=== PATIENT | female | born 1960 | race Caucasian/White ===

== ENCOUNTER 2017-10-29 18:54 | Inpatient (IN) | payer OTHER ==
[2017-10-29] MEDS ORDERED: NACL 0.9% 3 ML SYG IV (21:00)
[2017-10-29] MEDS ORDERED: DEXTROSE 50% 50 ML SYRINGE IV (21:30)
[2017-10-29] MEDS ORDERED: GLUCAGON 1 MG INJ IM (21:30)
[2017-10-29] MEDS ORDERED: GLUCOSE GEL 15 GRAM TUBE PO ×2 (21:30)
[2017-10-29] MEDS ORDERED: GLUCOSE GEL 15 GRAM TUBE BUCCAL (21:30)
[2017-10-29] MEDS: GABAPENTIN 300 MG CAP PO (22:34)
[2017-10-29] MEDS: ATORVASTATIN 80 MG TAB PO (22:34)
[2017-10-29] MEDS: FERROUS SULFATE (EC) 325 MG TAB PO (22:34)
[2017-10-29] MEDS: INSULIN ASPART [NOVOLOG] 3 ML PEN SC (22:40)
[2017-10-29] MEDS: INSULIN GLARGINE [LANtus] 3 ML PEN SC (22:40)
[2017-10-29] MEDS: ACETAMINOPHEN 325 MG TAB PO (22:43)
[2017-10-29] MEDS: METOPROLOL 50 MG TAB PO (22:43)
[2017-10-30] MEDS: ACCU-CHEK XX (02:37)
[2017-10-30] MEDS: DEXTROSE 50% 50 ML SYRINGE IV (03:53)
[2017-10-30] MEDS: PANTOPRAZOLE (EC) 40 MG TAB PO (05:49)
[2017-10-30] MEDS ORDERED: glipiZIDE (XL) 5 MG TAB PO (07:30)
[2017-10-30 07:49] LABS: ADD MAN DIFF? NO
[2017-10-30 07:56] LABS: WHITE BLOOD COUNT 6.9 10^3/ul (4.8-10.8)
[2017-10-30 07:56] LABS: BASOPHIL # 0.1 10^3/ul (0.0-0.1); BASOPHILS % 0.7 % (0.0-2.0); EOSINOPHILS # 0.1 10^3/ul (0.0-0.5); EOSINOPHILS % 0.7 % (0.0-7.0); HEMATOCRIT 27.7 % (37.0-47.0); HEMOGLOBIN 8.6 g/dl (12.0-16.0); LYMPHOCYTES # 1.3 10^3/ul (0.8-2.9); LYMPHOCYTES % 18.3 % (15.0-51.0); MEAN CORPUSCULAR HEMOGLOBIN 27.1 pg (29.0-33.0); MEAN CORPUSCULAR VOLUME 87.4 fl (82.0-101.0); MEAN PLATELET VOLUME 9.4 fl (7.4-10.4); MONOCYTE # 0.3 10^3/ul (0.3-0.9); MONOCYTES % 4.6 % (0.0-11.0); NEUTROPHIL # 5.2 10^3/ul (1.6-7.5); NEUTROPHILS % 75.3 % (39.0-77.0); PLATELET COUNT 544 10^3/UL (140-415); RED BLOOD COUNT 3.17 10^6/ul (4.20-5.40); RED CELL DISTRIBUTION WIDTH 16.6 % (11.5-14.5)
[2017-10-30] MEDS: INSULIN ASPART [NOVOLOG] 3 ML PEN SC ×4 (08:00→21:24)
[2017-10-30 08:19] LABS: ANION GAP 13 (8-16); BLOOD UREA NITROGEN 27 mg/dl (7-20); CALCIUM 8.7 mg/dl (8.4-10.2); CARBON DIOXIDE 25 mmol/L (21-31); CHLORIDE 112 mmol/L (97-110); CREATININE 1.82 mg/dl (0.44-1.00); GLUCOSE 122 mg/dl (70-220); POTASSIUM 4.2 mmol/L (3.5-5.1); SODIUM 146 mmol/L (135-144)
[2017-10-30] MEDS: ASPIRIN 81 MG TAB PO (08:30)
[2017-10-30] MEDS: FELODIPINE (ER) 10 MG TAB PO (08:31)
[2017-10-30] MEDS: METOPROLOL 50 MG TAB PO ×2 (08:31→21:18)
[2017-10-30] MEDS: ISOSORBIDE MONONITRATE(SR)30 MG TAB PO (08:31)
[2017-10-30] MEDS: FENOFIBRATE 145 MG TAB PO (08:32)
[2017-10-30] MEDS: CLOPIDOGREL 75 MG TAB PO (08:32)
[2017-10-30] MEDS: AMLODIPINE 10 MG TAB PO (08:32)
[2017-10-30] MEDS: FERROUS SULFATE (EC) 325 MG TAB PO ×2 (08:49→21:17)
[2017-10-30] MEDS ORDERED: NON-FORMULARY/PATIENT OWN MED (Fenofibrate, Micronized* (Fenofibrate*) 160 MG) PO (11:30)
[2017-10-30] MEDS ORDERED: NITROGLYCERIN (SL) 0.4 MG TAB SL (11:30)
[2017-10-30] MEDS: FUROSEMIDE 20 MG TAB PO (12:30)
[2017-10-30] MEDS: ACETAMINOPHEN 325 MG TAB PO (14:41)
[2017-10-30 19:46] LABS: TROPONIN-I 0.393 ng/ml (0.00-0.12)
[2017-10-30 20:10] LABS: IRON 38 ug/dl (35-150)
[2017-10-30 20:19] LABS: % IRON SATURATION 13 % SAT (22-52); TOTAL IRON BINDING CAPACITY 304 ug/dl (241-421)
[2017-10-30 21:10] LABS: CREATINE KINASE 96 IU/L (23-200)
[2017-10-30] MEDS: GABAPENTIN 300 MG CAP PO (21:17)
[2017-10-30] MEDS: ATORVASTATIN 80 MG TAB PO (21:17)
[2017-10-30 21:20] LABS: B-TYPE NATRIURETIC PEPTIDE 15800 PG/ML (0-125); CK INDEX 1.3; CK-MB 1.22 ng/ml (0.0-2.4)
[2017-10-30 21:25] LABS: TROPONIN-I 0.365 ng/ml (0.00-0.12)
[2017-10-30] MEDS: morphine 2 MG INJ IV (23:05)
[2017-10-31] MEDS: ACCU-CHEK XX (02:26)
[2017-10-31] MEDS: FUROSEMIDE 20 MG TAB PO (05:30)
[2017-10-31] MEDS: PANTOPRAZOLE (EC) 40 MG TAB PO (05:30)
[2017-10-31 06:32] LABS: ADD MAN DIFF? NO
[2017-10-31 07:09] LABS: CK-MB 1.49 ng/ml (0.0-2.4)
[2017-10-31 07:11] LABS: ADD UMIC YES; UR ASCORBIC ACID NEGATIVE (NEGATIVE); UR BILIRUBIN (Dip) NEGATIVE (NEGATIVE); UR BLOOD (Dip) NEGATIVE (NEGATIVE); UR CLARITY CLEAR (CLEAR); UR COLOR YELLOW (YELLOW); UR GLUCOSE (Dip) 3+ mg/dL (NEGATIVE); UR KETONES (Dip) NEGATIVE (NEGATIVE); UR LEUKOCYTE ESTERASE (Dip) NEGATIVE Leu/ul (NEGATIVE); UR NITRITE (Dip) NEGATIVE (NEGATIVE); UR RBC 2 /HPF (0-5); UR SPECIFIC GRAVITY (Dip) 1.013 (1.003-1.030); UR TOTAL PROTEIN (Dip) 3+ mg/dl (NEGATIVE); UR UROBILINOGEN (Dip) NEGATIVE (NEGATIVE); UR WBC 3 /HPF (0-5)
[2017-10-31 07:19] LABS: ANION GAP 15 (8-16); BLOOD UREA NITROGEN 27 mg/dl (7-20); CALCIUM 8.8 mg/dl (8.4-10.2); CARBON DIOXIDE 24 mmol/L (21-31); CHLORIDE 111 mmol/L (97-110); CREATININE 1.69 mg/dl (0.44-1.00); GLUCOSE 176 mg/dl (70-220); POTASSIUM 4.2 mmol/L (3.5-5.1); SODIUM 146 mmol/L (135-144)
[2017-10-31] MEDS: INSULIN ASPART [NOVOLOG] 3 ML PEN SC ×4 (07:29→20:33)
[2017-10-31 08:01] LABS: CHOLESTEROL 137 mg/dl (100-200)
[2017-10-31 08:01] LABS: CHOL/HDL RATIO 3.1 RATIO; CK INDEX 1.8; CREATINE KINASE 82 IU/L (23-200); HDL CHOLESTEROL 44 mg/dl (37-92); LDL CHOLESTEROL,CALCULATED 41 mg/dl; TRIGLYCERIDES 260 mg/dl (0-149)
[2017-10-31 08:10] LABS: WHITE BLOOD COUNT 6.1 10^3/ul (4.8-10.8)
[2017-10-31 08:10] LABS: BASOPHIL # 0.1 10^3/ul (0.0-0.1); BASOPHILS % 0.8 % (0.0-2.0); EOSINOPHILS # 0.2 10^3/ul (0.0-0.5); EOSINOPHILS % 3.8 % (0.0-7.0); HEMATOCRIT 25.4 % (37.0-47.0); HEMOGLOBIN 7.9 g/dl (12.0-16.0); LYMPHOCYTES # 1.8 10^3/ul (0.8-2.9); LYMPHOCYTES % 29.5 % (15.0-51.0); MEAN CORPUSCULAR HEMOGLOBIN 27.2 pg (29.0-33.0); MEAN CORPUSCULAR HGB CONC 31.1 g/dl (32.0-37.0); MEAN CORPUSCULAR VOLUME 87.6 fl (82.0-101.0); MEAN PLATELET VOLUME 9.7 fl (7.4-10.4); MONOCYTE # 0.3 10^3/ul (0.3-0.9); MONOCYTES % 5.4 % (0.0-11.0); NEUTROPHIL # 3.6 10^3/ul (1.6-7.5); PLATELET COUNT 494 10^3/UL (140-415)
[2017-10-31] MEDS: ASPIRIN 81 MG TAB PO (08:12)
[2017-10-31] MEDS: ISOSORBIDE MONONITRATE(SR)30 MG TAB PO (08:12)
[2017-10-31] MEDS: METOPROLOL 50 MG TAB PO ×2 (08:12→20:22)
[2017-10-31] MEDS: FENOFIBRATE 145 MG TAB PO (08:12)
[2017-10-31] MEDS: AMLODIPINE 10 MG TAB PO (08:12)
[2017-10-31] MEDS: FERROUS SULFATE (EC) 325 MG TAB PO ×2 (08:12→20:22)
[2017-10-31] MEDS: CLOPIDOGREL 75 MG TAB PO (08:12)
[2017-10-31] MEDS: FELODIPINE (ER) 10 MG TAB PO (08:12)
[2017-10-31 09:58] LABS: HEMOGLOBIN A1C 9.6 % (0-5.9)
[2017-10-31] MEDS: DOCUSATE SODIUM 100 MG CAP PO (16:33)
[2017-10-31] MEDS: ATORVASTATIN 80 MG TAB PO (20:22)
[2017-10-31] MEDS: GABAPENTIN 300 MG CAP PO (20:22)
[2017-11-01] MEDS: ACCU-CHEK XX (02:45)
[2017-11-01] MEDS: morphine 2 MG INJ IV ×2 (03:00→07:55)
[2017-11-01] MEDS: DOCUSATE SODIUM 100 MG CAP PO (05:11)
[2017-11-01] MEDS: PANTOPRAZOLE (EC) 40 MG TAB PO (05:11)
[2017-11-01] MEDS: INSULIN ASPART [NOVOLOG] 3 ML PEN SC ×4 (07:50→20:55)
[2017-11-01] MEDS: METOPROLOL 50 MG TAB PO ×2 (07:55→20:52)
[2017-11-01] MEDS: AMLODIPINE 10 MG TAB PO (07:55)
[2017-11-01] MEDS: ISOSORBIDE MONONITRATE(SR)30 MG TAB PO (07:56)
[2017-11-01] MEDS: FERROUS SULFATE (EC) 325 MG TAB PO ×2 (07:56→20:52)
[2017-11-01] MEDS: ASPIRIN 81 MG TAB PO (07:56)
[2017-11-01] MEDS: CLOPIDOGREL 75 MG TAB PO (07:56)
[2017-11-01] MEDS: FENOFIBRATE 145 MG TAB PO (07:57)
[2017-11-01] MEDS: GUAIFENESIN/CODEINE 5ML CUP PO (09:40)
[2017-11-01] MEDS: BISACODYL (EC) 5 MG TAB PO (16:08)
[2017-11-01] MEDS: MAGNESIUM CITRATE 300 ML BTL PO (17:07)
[2017-11-01] MEDS: POLYETHYLENE GLYCOL 3350 119 GM POWDER PO (17:08)
[2017-11-01 17:53] LABS: ADD MAN DIFF? NO
[2017-11-01 17:55] LABS: BASOPHIL # 0.1 10^3/ul (0.0-0.1); BASOPHILS % 0.8 % (0.0-2.0); EOSINOPHILS # 0.3 10^3/ul (0.0-0.5); EOSINOPHILS % 4.7 % (0.0-7.0); HEMOGLOBIN 9.2 g/dl (12.0-16.0); LYMPHOCYTES # 1.8 10^3/ul (0.8-2.9); LYMPHOCYTES % 28.3 % (15.0-51.0); MEAN CORPUSCULAR HEMOGLOBIN 27.5 pg (29.0-33.0); MEAN CORPUSCULAR HGB CONC 31.7 g/dl (32.0-37.0); MEAN CORPUSCULAR VOLUME 86.8 fl (82.0-101.0); MEAN PLATELET VOLUME 9.8 fl (7.4-10.4); MONOCYTE # 0.4 10^3/ul (0.3-0.9); MONOCYTES % 6.7 % (0.0-11.0); NEUTROPHIL # 3.7 10^3/ul (1.6-7.5); NEUTROPHILS % 59.2 % (39.0-77.0); PLATELET COUNT 571 10^3/UL (140-415); RED BLOOD COUNT 3.34 10^6/ul (4.20-5.40); RED CELL DISTRIBUTION WIDTH 16.5 % (11.5-14.5)
[2017-11-01 17:55] LABS: WHITE BLOOD COUNT 6.2 10^3/ul (4.8-10.8)
[2017-11-01] MEDS: ATORVASTATIN 80 MG TAB PO (20:52)
[2017-11-01] MEDS: GABAPENTIN 300 MG CAP PO (20:52)
[2017-11-01 21:50] LABS: OCCULT BLOOD STOOL NEGATIVE (NEGATIVE)
[2017-11-02] MEDS: ACCU-CHEK XX (02:00)
[2017-11-02] MEDS: POLYETHYLENE GLYCOL 3350 119 GM POWDER PO (05:16)
[2017-11-02] MEDS: PANTOPRAZOLE (EC) 40 MG TAB PO (05:17)
[2017-11-02 07:37] LABS: ALANINE AMINOTRANSFERASE 38 IU/L (13-69); ALBUMIN 3.7 g/dl (3.3-4.9); ALBUMIN/GLOBULIN RATIO 1.08; ALKALINE PHOSPHATASE 131 IU/L (42-121); ANION GAP 14 (8-16); ASPARTATE AMINO TRANSFERASE 44 IU/L (15-46); BLOOD UREA NITROGEN 34 mg/dl (7-20); CALCIUM 8.9 mg/dl (8.4-10.2); CARBON DIOXIDE 26 mmol/L (21-31); CHLORIDE 105 mmol/L (97-110); CREATININE 1.49 mg/dl (0.44-1.00); GLUCOSE 204 mg/dl (70-220); POTASSIUM 4.5 mmol/L (3.5-5.1); SODIUM 140 mmol/L (135-144); TOTAL PROTEIN 7.1 g/dl (6.1-8.1)
[2017-11-02] MEDS: BISACODYL (EC) 5 MG TAB PO (07:56)
[2017-11-02] MEDS: CLOPIDOGREL 75 MG TAB PO (08:05)
[2017-11-02] MEDS: FERROUS SULFATE (EC) 325 MG TAB PO ×2 (08:06→21:24)
[2017-11-02] MEDS: AMLODIPINE 10 MG TAB PO (08:06)
[2017-11-02] MEDS: FENOFIBRATE 145 MG TAB PO (08:07)
[2017-11-02] MEDS: ASPIRIN 81 MG TAB PO (08:07)
[2017-11-02] MEDS: ISOSORBIDE MONONITRATE(SR)30 MG TAB PO (08:07)
[2017-11-02] MEDS: INSULIN ASPART [NOVOLOG] 3 ML PEN SC ×4 (08:13→21:00)
[2017-11-02] MEDS: METOPROLOL 50 MG TAB PO ×2 (10:57→21:23)
[2017-11-02] MEDS ORDERED: hydrALAzine 20 MG INJ IV (14:00)
[2017-11-02] MEDS ORDERED: LIDOCAINE 2% (SDV) 5 ML INJ (19:50)
[2017-11-02] MEDS ORDERED: PROPOFOL 60 ML (19:50)
[2017-11-02] MEDS: DOXAZOSIN 1 MG TAB PO (21:23)
[2017-11-02] MEDS: GABAPENTIN 300 MG CAP PO (21:23)
[2017-11-02] MEDS: INSULIN GLARGINE [LANtus] 3 ML PEN SC (21:27)
[2017-11-02] MEDS: ATORVASTATIN 80 MG TAB PO (21:28)
[2017-11-02] MEDS: LACTULOSE 30ML CUP NGT (23:49)
[2017-11-03] MEDS ORDERED: LACTULOSE 30ML CUP NGT
[2017-11-03] MEDS: ACCU-CHEK XX (01:35)
[2017-11-03] MEDS: ACETAMINOPHEN 325 MG TAB PO (02:27)
[2017-11-03] MEDS: PANTOPRAZOLE (EC) 40 MG TAB PO (05:31)
[2017-11-03] MEDS: LACTULOSE 30ML CUP NGT ×3 (05:32→17:55)
[2017-11-03 08:47] LABS: ADD MAN DIFF? NO
[2017-11-03 08:55] LABS: WHITE BLOOD COUNT 4.2 10^3/ul (4.8-10.8)
[2017-11-03 08:55] LABS: BASOPHIL # 0.1 10^3/ul (0.0-0.1); BASOPHILS % 1.2 % (0.0-2.0); EOSINOPHILS # 0.1 10^3/ul (0.0-0.5); EOSINOPHILS % 2.9 % (0.0-7.0); HEMATOCRIT 28.6 % (37.0-47.0); HEMOGLOBIN 8.9 g/dl (12.0-16.0); LYMPHOCYTES # 0.9 10^3/ul (0.8-2.9); LYMPHOCYTES % 21.1 % (15.0-51.0); MEAN CORPUSCULAR HEMOGLOBIN 26.7 pg (29.0-33.0); MEAN CORPUSCULAR HGB CONC 31.1 g/dl (32.0-37.0); MEAN CORPUSCULAR VOLUME 85.9 fl (82.0-101.0); MEAN PLATELET VOLUME 9.6 fl (7.4-10.4); MONOCYTE # 0.3 10^3/ul (0.3-0.9); MONOCYTES % 6.7 % (0.0-11.0); NEUTROPHIL # 2.8 10^3/ul (1.6-7.5); NEUTROPHILS % 67.9 % (39.0-77.0); PLATELET COUNT 464 10^3/UL (140-415); RED BLOOD COUNT 3.33 10^6/ul (4.20-5.40); RED CELL DISTRIBUTION WIDTH 16.4 % (11.5-14.5)
[2017-11-03] MEDS: INSULIN ASPART [NOVOLOG] 3 ML PEN SC ×4 (08:58→21:00)
[2017-11-03] MEDS: ASPIRIN 81 MG TAB PO (08:59)
[2017-11-03] MEDS: AMLODIPINE 10 MG TAB PO (08:59)
[2017-11-03] MEDS: FUROSEMIDE 20 MG INJ IV (08:59)
[2017-11-03] MEDS: CLOPIDOGREL 75 MG TAB PO (08:59)
[2017-11-03] MEDS: FENOFIBRATE 145 MG TAB PO (08:59)
[2017-11-03] MEDS: DOXAZOSIN 1 MG TAB PO ×2 (09:00→20:35)
[2017-11-03] MEDS: FERROUS SULFATE (EC) 325 MG TAB PO ×2 (09:00→20:35)
[2017-11-03] MEDS: ISOSORBIDE MONONITRATE(SR)30 MG TAB PO (09:00)
[2017-11-03] MEDS: CYCLOBENZAPRINE 10 MG TAB PO (09:00)
[2017-11-03] MEDS: METOPROLOL 50 MG TAB PO ×2 (09:01→20:34)
[2017-11-03 09:13] LABS: CREATINE KINASE 63 IU/L (23-200)
[2017-11-03 09:15] LABS: ANION GAP 15 (8-16); BLOOD UREA NITROGEN 25 mg/dl (7-20); CARBON DIOXIDE 22 mmol/L (21-31); CHLORIDE 112 mmol/L (97-110); CREATININE 1.37 mg/dl (0.44-1.00); GLUCOSE 173 mg/dl (70-220); POTASSIUM 4.4 mmol/L (3.5-5.1); SODIUM 145 mmol/L (135-144)
[2017-11-03 09:21] LABS: CK INDEX 1.9; CK-MB 1.17 ng/ml (0.0-2.4); TROPONIN-I 0.119 ng/ml (0.00-0.12)
[2017-11-03] MEDS: BISACODYL (EC) 5 MG TAB PO (15:11)
[2017-11-03] MEDS: POLYETHYLENE GLYCOL 3350 119 GM POWDER PO (17:55)
[2017-11-03] MEDS: NIFEdipine (XL) 30 MG TAB PO (20:34)
[2017-11-03] MEDS: GABAPENTIN 300 MG CAP PO (20:34)
[2017-11-03] MEDS: INSULIN GLARGINE [LANtus] 3 ML PEN SC (20:37)
[2017-11-03] MEDS: ATORVASTATIN 80 MG TAB PO (21:19)
[2017-11-03] MEDS: MAGNESIUM CITRATE 300 ML BTL PO (21:20)
[2017-11-04] MEDS: LACTULOSE 30ML CUP NGT ×6 (00:15→23:56)
[2017-11-04] MEDS: ACCU-CHEK XX (02:00)
[2017-11-04] MEDS: PANTOPRAZOLE (EC) 40 MG TAB PO (05:18)
[2017-11-04] MEDS: POLYETHYLENE GLYCOL 3350 119 GM POWDER PO (05:59)
[2017-11-04 07:28] LABS: ADD MAN DIFF? NO
[2017-11-04 07:30] LABS: BASOPHIL # 0.1 10^3/ul (0.0-0.1); BASOPHILS % 1.5 % (0.0-2.0); EOSINOPHILS # 0.1 10^3/ul (0.0-0.5); HEMATOCRIT 31.5 % (37.0-47.0); HEMOGLOBIN 9.8 g/dl (12.0-16.0); LYMPHOCYTES # 1.3 10^3/ul (0.8-2.9); LYMPHOCYTES % 28.9 % (15.0-51.0); MEAN CORPUSCULAR HEMOGLOBIN 27.3 pg (29.0-33.0); MEAN CORPUSCULAR HGB CONC 31.1 g/dl (32.0-37.0); MEAN CORPUSCULAR VOLUME 87.7 fl (82.0-101.0); MEAN PLATELET VOLUME 9.9 fl (7.4-10.4); MONOCYTE # 0.4 10^3/ul (0.3-0.9); MONOCYTES % 9.5 % (0.0-11.0); NEUTROPHIL # 2.6 10^3/ul (1.6-7.5); NEUTROPHILS % 56.7 % (39.0-77.0); PLATELET COUNT 544 10^3/UL (140-415); RED BLOOD COUNT 3.59 10^6/ul (4.20-5.40); RED CELL DISTRIBUTION WIDTH 16.1 % (11.5-14.5)
[2017-11-04 07:30] LABS: WHITE BLOOD COUNT 4.6 10^3/ul (4.8-10.8)
[2017-11-04 07:50] LABS: MAGNESIUM 2.9 mg/dl (1.7-2.5)
[2017-11-04 07:50] LABS: PHOSPHORUS 5.8 mg/dl (2.5-4.9)
[2017-11-04 07:55] LABS: ANION GAP 19 (8-16); BLOOD UREA NITROGEN 28 mg/dl (7-20); CALCIUM 9.5 mg/dl (8.4-10.2); CARBON DIOXIDE 18 mmol/L (21-31); CHLORIDE 111 mmol/L (97-110); CREATININE 1.78 mg/dl (0.44-1.00); GLUCOSE 212 mg/dl (70-220); POTASSIUM 4.2 mmol/L (3.5-5.1); SODIUM 144 mmol/L (135-144)
[2017-11-04] MEDS: DOXAZOSIN 1 MG TAB PO ×2 (08:13→20:42)
[2017-11-04] MEDS: FERROUS SULFATE (EC) 325 MG TAB PO ×2 (08:13→20:42)
[2017-11-04] MEDS: ISOSORBIDE MONONITRATE(SR)30 MG TAB PO (08:13)
[2017-11-04] MEDS: NIFEdipine (XL) 30 MG TAB PO ×2 (08:14→20:41)
[2017-11-04] MEDS: METOPROLOL 50 MG TAB PO ×2 (08:14→20:44)
[2017-11-04] MEDS: FENOFIBRATE 145 MG TAB PO (08:14)
[2017-11-04] MEDS: BISACODYL (EC) 5 MG TAB PO (08:29)
[2017-11-04] MEDS: INSULIN ASPART [NOVOLOG] 3 ML PEN SC ×4 (08:31→20:43)
[2017-11-04] MEDS: FUROSEMIDE 20 MG INJ IV (08:33)
[2017-11-04] MEDS: CALCIUM ACETATE 667 MG CAP PO ×2 (11:59→18:05)
[2017-11-04] MEDS: PROPOFOL 20 ML (18:18)
[2017-11-04] MEDS ORDERED: LABETALOL 5 MG IV (19:00)
[2017-11-04] MEDS ORDERED: ONDANSETRON 4 MG INJ IV (19:00)
[2017-11-04] MEDS ORDERED: hydrALAzine 5 MG IV (19:00)
[2017-11-04] MEDS: FENTAnyl 50 MCG/ML VIAL (19:50)
[2017-11-04] MEDS: MIDAZOLAM 1 MG/ML 2 ML INJ (19:51)
[2017-11-04] MEDS: GABAPENTIN 300 MG CAP PO (20:42)
[2017-11-04] MEDS: ATORVASTATIN 80 MG TAB PO (20:42)
[2017-11-04] MEDS: INSULIN GLARGINE [LANtus] 3 ML PEN SC (20:43)
[2017-11-04] MEDS: DEXTROSE 50% 50 ML SYRINGE IV (23:52)
[2017-11-05] MEDS: ACCU-CHEK XX ×2 (02:00→21:34)
[2017-11-05] MEDS: PANTOPRAZOLE (EC) 40 MG TAB PO (05:18)
[2017-11-05] MEDS: LACTULOSE 30ML CUP NGT ×2 (05:18→11:50)
[2017-11-05] MEDS: CYCLOBENZAPRINE 10 MG TAB PO (05:23)
[2017-11-05] MEDS: INSULIN ASPART [NOVOLOG] 3 ML PEN SC ×4 (08:00→21:00)
[2017-11-05 08:17] LABS: ADD MAN DIFF? NO
[2017-11-05 08:27] LABS: BASOPHIL # 0.1 10^3/ul (0.0-0.1); BASOPHILS % 1.2 % (0.0-2.0); EOSINOPHILS # 0.2 10^3/ul (0.0-0.5); HEMATOCRIT 29.7 % (37.0-47.0); HEMOGLOBIN 9.2 g/dl (12.0-16.0); LYMPHOCYTES # 1.5 10^3/ul (0.8-2.9); LYMPHOCYTES % 29.1 % (15.0-51.0); MEAN CORPUSCULAR HEMOGLOBIN 27.1 pg (29.0-33.0); MEAN CORPUSCULAR VOLUME 87.6 fl (82.0-101.0); MEAN PLATELET VOLUME 10.2 fl (7.4-10.4); MONOCYTE # 0.5 10^3/ul (0.3-0.9); MONOCYTES % 9.9 % (0.0-11.0); NEUTROPHIL # 2.9 10^3/ul (1.6-7.5); NEUTROPHILS % 56.6 % (39.0-77.0); PLATELET COUNT 531 10^3/UL (140-415); RED BLOOD COUNT 3.39 10^6/ul (4.20-5.40); RED CELL DISTRIBUTION WIDTH 16.2 % (11.5-14.5)
[2017-11-05 08:27] LABS: WHITE BLOOD COUNT 5.1 10^3/ul (4.8-10.8)
[2017-11-05] MEDS: FUROSEMIDE 20 MG INJ IV (08:39)
[2017-11-05] MEDS: DOXAZOSIN 1 MG TAB PO ×2 (08:39→21:31)
[2017-11-05] MEDS: CALCIUM ACETATE 667 MG CAP PO ×3 (08:39→17:38)
[2017-11-05] MEDS: ISOSORBIDE MONONITRATE(SR)30 MG TAB PO (08:39)
[2017-11-05] MEDS: FENOFIBRATE 145 MG TAB PO (08:39)
[2017-11-05] MEDS: FERROUS SULFATE (EC) 325 MG TAB PO ×2 (08:39→21:32)
[2017-11-05] MEDS: NIFEdipine (XL) 30 MG TAB PO ×2 (08:40→21:34)
[2017-11-05] MEDS: METOPROLOL 50 MG TAB PO ×2 (08:40→21:33)
[2017-11-05 08:42] LABS: ANION GAP 13 (8-16); BLOOD UREA NITROGEN 21 mg/dl (7-20); CALCIUM 9.2 mg/dl (8.4-10.2); CARBON DIOXIDE 23 mmol/L (21-31); CHLORIDE 114 mmol/L (97-110); CREATININE 1.45 mg/dl (0.44-1.00); GLUCOSE 59 mg/dl (70-220); POTASSIUM 3.5 mmol/L (3.5-5.1); SODIUM 146 mmol/L (135-144)
[2017-11-05 08:43] LABS: MAGNESIUM 2.7 mg/dl (1.7-2.5)
[2017-11-05 08:43] LABS: PHOSPHORUS 4.6 mg/dl (2.5-4.9)
[2017-11-05] MEDS: CLOPIDOGREL 75 MG TAB PO (11:49)
[2017-11-05] MEDS: ASPIRIN 81 MG TAB PO (11:50)
[2017-11-05] MEDS: ACETAMINOPHEN 325 MG TAB PO (14:11)
[2017-11-05] MEDS: morphine 2 MG INJ IV (14:19)
[2017-11-05] MEDS: INSULIN GLARGINE [LANtus] 3 ML PEN SC (21:29)
[2017-11-05] MEDS: ATORVASTATIN 80 MG TAB PO (21:32)
[2017-11-05] MEDS: GABAPENTIN 300 MG CAP PO (21:33)
[2017-11-06] MEDS: PANTOPRAZOLE (EC) 40 MG TAB PO (05:52)
[2017-11-06] MEDS: CALCIUM ACETATE 667 MG CAP PO ×3 (07:42→17:29)
[2017-11-06] MEDS: FERROUS SULFATE (EC) 325 MG TAB PO ×2 (07:43→21:50)
[2017-11-06] MEDS: INSULIN ASPART [NOVOLOG] 3 ML PEN SC ×4 (07:43→21:37)
[2017-11-06] MEDS: FENOFIBRATE 145 MG TAB PO (07:44)
[2017-11-06 07:58] LABS: ADD MAN DIFF? NO
[2017-11-06 08:03] LABS: BASOPHIL # 0.1 10^3/ul (0.0-0.1); BASOPHILS % 1.1 % (0.0-2.0); EOSINOPHILS # 0.2 10^3/ul (0.0-0.5); EOSINOPHILS % 3.6 % (0.0-7.0); HEMATOCRIT 27.2 % (37.0-47.0); HEMOGLOBIN 8.5 g/dl (12.0-16.0); LYMPHOCYTES # 1.3 10^3/ul (0.8-2.9); LYMPHOCYTES % 27.9 % (15.0-51.0); MEAN CORPUSCULAR HEMOGLOBIN 27.1 pg (29.0-33.0); MEAN CORPUSCULAR HGB CONC 31.3 g/dl (32.0-37.0); MEAN CORPUSCULAR VOLUME 86.6 fl (82.0-101.0); MEAN PLATELET VOLUME 10.3 fl (7.4-10.4); MONOCYTE # 0.4 10^3/ul (0.3-0.9); MONOCYTES % 9.8 % (0.0-11.0); NEUTROPHIL # 2.6 10^3/ul (1.6-7.5); NEUTROPHILS % 57.4 % (39.0-77.0); PLATELET COUNT 471 10^3/UL (140-415); RED BLOOD COUNT 3.14 10^6/ul (4.20-5.40); RED CELL DISTRIBUTION WIDTH 16.2 % (11.5-14.5)
[2017-11-06 08:03] LABS: WHITE BLOOD COUNT 4.5 10^3/ul (4.8-10.8)
[2017-11-06 08:26] LABS: ANION GAP 13 (8-16); BLOOD UREA NITROGEN 26 mg/dl (7-20); CALCIUM 8.7 mg/dl (8.4-10.2); CARBON DIOXIDE 23 mmol/L (21-31); CHLORIDE 112 mmol/L (97-110); CREATININE 1.67 mg/dl (0.44-1.00); GLUCOSE 191 mg/dl (70-220); POTASSIUM 3.8 mmol/L (3.5-5.1); SODIUM 144 mmol/L (135-144)
[2017-11-06 08:29] LABS: MAGNESIUM 2.3 mg/dl (1.7-2.5)
[2017-11-06 08:29] LABS: PHOSPHORUS 4.7 mg/dl (2.5-4.9)
[2017-11-06] MEDS: ISOSORBIDE MONONITRATE(SR)30 MG TAB PO (08:39)
[2017-11-06] MEDS: ASPIRIN 81 MG TAB PO (08:40)
[2017-11-06] MEDS: CLOPIDOGREL 75 MG TAB PO (08:40)
[2017-11-06] MEDS: NIFEdipine (XL) 30 MG TAB PO ×2 (08:40→21:50)
[2017-11-06] MEDS: DOXAZOSIN 1 MG TAB PO ×2 (08:40→21:50)
[2017-11-06] MEDS: METOPROLOL 50 MG TAB PO ×2 (08:40→21:51)
[2017-11-06] MEDS: FUROSEMIDE 20 MG INJ IV (08:41)
[2017-11-06] MEDS ORDERED: LACTULOSE 30ML CUP PO (09:00)
[2017-11-06] MEDS: REGADENOSON 0.4 MG/5 ML SYG (12:55)
[2017-11-06] MEDS: INSULIN GLARGINE [LANtus] 3 ML PEN SC (21:44)
[2017-11-06] MEDS: ATORVASTATIN 80 MG TAB PO (21:50)
[2017-11-06] MEDS: GABAPENTIN 300 MG CAP PO (21:50)
[2017-11-07] MEDS: ACCU-CHEK XX (01:21)
[2017-11-07] MEDS: ACETAMINOPHEN 325 MG TAB PO (02:11)
[2017-11-07] MEDS: PANTOPRAZOLE (EC) 40 MG TAB PO (06:42)
[2017-11-07 06:45] LABS: ADD MAN DIFF? NO
[2017-11-07 06:51] LABS: BASOPHIL # 0.1 10^3/ul (0.0-0.1); EOSINOPHILS # 0.2 10^3/ul (0.0-0.5); EOSINOPHILS % 3.7 % (0.0-7.0); HEMATOCRIT 28.7 % (37.0-47.0); HEMOGLOBIN 9.1 g/dl (12.0-16.0); LYMPHOCYTES # 1.6 10^3/ul (0.8-2.9); LYMPHOCYTES % 32.4 % (15.0-51.0); MEAN CORPUSCULAR HEMOGLOBIN 27.3 pg (29.0-33.0); MEAN CORPUSCULAR HGB CONC 31.7 g/dl (32.0-37.0); MEAN CORPUSCULAR VOLUME 86.2 fl (82.0-101.0); MONOCYTE # 0.5 10^3/ul (0.3-0.9); MONOCYTES % 9.4 % (0.0-11.0); NEUTROPHIL # 2.6 10^3/ul (1.6-7.5); NEUTROPHILS % 53.3 % (39.0-77.0); PLATELET COUNT 473 10^3/UL (140-415); RED BLOOD COUNT 3.33 10^6/ul (4.20-5.40); RED CELL DISTRIBUTION WIDTH 15.9 % (11.5-14.5)
[2017-11-07 06:51] LABS: WHITE BLOOD COUNT 4.8 10^3/ul (4.8-10.8)
[2017-11-07 07:18] LABS: MAGNESIUM 2.3 mg/dl (1.7-2.5)
[2017-11-07 07:18] LABS: PHOSPHORUS 3.7 mg/dl (2.5-4.9)
[2017-11-07 07:19] LABS: ANION GAP 13 (8-16); BLOOD UREA NITROGEN 28 mg/dl (7-20); CARBON DIOXIDE 24 mmol/L (21-31); CHLORIDE 111 mmol/L (97-110); CREATININE 1.48 mg/dl (0.44-1.00); GLUCOSE 128 mg/dl (70-220); POTASSIUM 3.6 mmol/L (3.5-5.1); SODIUM 144 mmol/L (135-144)
[2017-11-07] MEDS: INSULIN ASPART [NOVOLOG] 3 ML PEN SC ×4 (08:13→21:53)
[2017-11-07] MEDS: FENOFIBRATE 145 MG TAB PO (09:06)
[2017-11-07] MEDS: DOXAZOSIN 1 MG TAB PO ×2 (09:06→21:43)
[2017-11-07] MEDS: FERROUS SULFATE (EC) 325 MG TAB PO ×2 (09:06→21:43)
[2017-11-07] MEDS: ASPIRIN 81 MG TAB PO (09:06)
[2017-11-07] MEDS: METOPROLOL 50 MG TAB PO ×2 (09:07→21:42)
[2017-11-07] MEDS: CYCLOBENZAPRINE 10 MG TAB PO (09:08)
[2017-11-07] MEDS: CALCIUM ACETATE 667 MG CAP PO ×3 (09:08→18:08)
[2017-11-07] MEDS: ISOSORBIDE MONONITRATE(SR)30 MG TAB PO (09:09)
[2017-11-07] MEDS: CLOPIDOGREL 75 MG TAB PO (09:09)
[2017-11-07] MEDS: FUROSEMIDE 20 MG INJ IV (09:09)
[2017-11-07] MEDS: NIFEdipine (XL) 30 MG TAB PO ×2 (09:18→21:42)
[2017-11-07] MEDS: LINAGLIPTIN 5 MG TABLET PO (12:42)
[2017-11-07] MEDS: GABAPENTIN 300 MG CAP PO (21:41)
[2017-11-07] MEDS: ATORVASTATIN 80 MG TAB PO (21:43)
[2017-11-07] MEDS: INSULIN GLARGINE [LANtus] 3 ML PEN SC (21:54)
[2017-11-08] MEDS: ACCU-CHEK XX (02:00)
[2017-11-08] MEDS: PANTOPRAZOLE (EC) 40 MG TAB PO (06:51)
[2017-11-08] MEDS: INSULIN ASPART [NOVOLOG] 3 ML PEN SC ×3 (08:00→17:28)
[2017-11-08] MEDS: FUROSEMIDE 20 MG INJ IV (08:35)
[2017-11-08] MEDS: ISOSORBIDE MONONITRATE(SR)30 MG TAB PO (08:36)
[2017-11-08] MEDS: FERROUS SULFATE (EC) 325 MG TAB PO (08:36)
[2017-11-08] MEDS: CLOPIDOGREL 75 MG TAB PO (08:36)
[2017-11-08] MEDS: CALCIUM ACETATE 667 MG CAP PO ×3 (08:36→18:12)
[2017-11-08] MEDS: DOCUSATE SODIUM 100 MG CAP PO (08:36)
[2017-11-08] MEDS: ASPIRIN 81 MG TAB PO (08:37)
[2017-11-08] MEDS: FENOFIBRATE 145 MG TAB PO (08:38)
[2017-11-08] MEDS: METOPROLOL 50 MG TAB PO (08:38)
[2017-11-08] MEDS: LINAGLIPTIN 5 MG TABLET PO (08:38)
[2017-11-08] MEDS: DOXAZOSIN 1 MG TAB PO (08:39)
[2017-11-08] MEDS: NIFEdipine (XL) 30 MG TAB PO (08:49)
== END 2017-11-08 18:22 | disposition home or self-care (01) | DRG 280 ==
LOC: MS4 18:54
PROVIDERS: Internal Medicine Nephrology
PROC: 0DJ08ZZ Inspection of Upper Intestinal Tract, Via Natural or Artificial Opening Endoscopic (ICD-10-PCS; principal; 2017-11-02 19:00)
PROC: 0DJD8ZZ Inspection of Lower Intestinal Tract, Via Natural or Artificial Opening Endoscopic (ICD-10-PCS; 2017-11-02 19:44)
DX: I21.4 Non-ST elevation (NSTEMI) myocardial infarction (principal); I50.31 Acute diastolic (congestive) heart failure; E87.0 Hyperosmolality and hypernatremia; N17.9 Acute kidney failure, unspecified; I13.0 Hypertensive heart and chronic kidney disease with heart failure and stage 1 through stage 4 chronic kidney disease, or unspecified chronic kidney disease; E11.65 Type 2 diabetes mellitus with hyperglycemia; E11.22 Type 2 diabetes mellitus with diabetic chronic kidney disease; D64.9 Anemia, unspecified; I27.20 Pulmonary hypertension, unspecified; N18.9 Chronic kidney disease, unspecified; E78.5 Hyperlipidemia, unspecified; K29.70 Gastritis, unspecified, without bleeding; E66.3 Overweight; I25.10 Atherosclerotic heart disease of native coronary artery without angina pectoris; K64.8 Other hemorrhoids; E11.649 Type 2 diabetes mellitus with hypoglycemia without coma; Z79.4 Long term (current) use of insulin; Z68.29 Body mass index [BMI] 29.0-29.9, adult
CPT/HCPCS: 71045; 76775; 78452; 80048; 80053; 80061; 81001; 82270; 82550; 82553; 82962; 83036; 83540; 83735; 83880; 84100; 84484; 85025; 87081; 93005; 93017; 93306; 93970; J1940

== ENCOUNTER 2018-02-11 00:49 | Inpatient (IN) | payer OTHER ==
[2018-02-11] MEDS ORDERED: DEXTROSE 50% 50 ML SYRINGE IV ×2 (03:00)
[2018-02-11] MEDS ORDERED: GLUCOSE GEL 15 GRAM TUBE PO ×2 (03:00)
[2018-02-11] MEDS ORDERED: GLUCAGON 1 MG INJ IM (03:00)
[2018-02-11] MEDS ORDERED: GLUCOSE GEL 15 GRAM TUBE BUCCAL (03:00)
[2018-02-11] MEDS: HYDROCODONE/APAP (5/325) TAB PO (03:30)
[2018-02-11] MEDS: INSULIN ASPART [NOVOLOG] 3 ML PEN SC ×4 (07:55→20:40)
[2018-02-11] MEDS: FERROUS SULFATE (EC) 325 MG TAB PO ×2 (08:09→20:26)
[2018-02-11] MEDS: ASPIRIN 81 MG TAB PO (08:09)
[2018-02-11] MEDS: AMLODIPINE 10 MG TAB PO (08:09)
[2018-02-11 08:58] LABS: ADD MAN DIFF? NO
[2018-02-11 09:09] LABS: BASOPHILS % 0.6 % (0.0-2.0); EOSINOPHILS # 0.2 10^3/ul (0.0-0.5); EOSINOPHILS % 3.1 % (0.0-7.0); HEMOGLOBIN 7.5 g/dl (12.0-16.0); LYMPHOCYTES # 1.6 10^3/ul (0.8-2.9); LYMPHOCYTES % 32.2 % (15.0-51.0); MEAN CORPUSCULAR HEMOGLOBIN 26.8 pg (29.0-33.0); MEAN CORPUSCULAR HGB CONC 31.3 g/dl (32.0-37.0); MEAN CORPUSCULAR VOLUME 85.7 fl (82.0-101.0); MEAN PLATELET VOLUME 10.9 fl (7.4-10.4); MONOCYTE # 0.4 10^3/ul (0.3-0.9); MONOCYTES % 7.3 % (0.0-11.0); NEUTROPHIL # 2.7 10^3/ul (1.6-7.5); NEUTROPHILS % 56.6 % (39.0-77.0); PLATELET COUNT 311 10^3/UL (140-415); RED CELL DISTRIBUTION WIDTH 15.8 % (11.5-14.5)
[2018-02-11 09:09] LABS: WHITE BLOOD COUNT 4.8 10^3/ul (4.8-10.8)
[2018-02-11 09:32] LABS: ANION GAP 11 (8-16); BLOOD UREA NITROGEN 29 mg/dl (7-20); CALCIUM 8.4 mg/dl (8.4-10.2); CARBON DIOXIDE 22 mmol/L (21-31); CHLORIDE 114 mmol/L (97-110); CREATININE 1.74 mg/dl (0.44-1.00); GLUCOSE 121 mg/dl (70-220); MAGNESIUM 2.6 mg/dl (1.7-2.5); PHOSPHORUS 4.9 mg/dl (2.5-4.9); SODIUM 143 mmol/L (135-144)
[2018-02-11] MEDS: NITROGLYCERIN (SL) 0.4 MG TAB SL ×2 (15:13→15:19)
[2018-02-11] MEDS: CLOPIDOGREL 75 MG TAB PO (17:55)
[2018-02-11] MEDS ORDERED: morphine 2 MG INJ IV (18:30)
[2018-02-11] MEDS: GABAPENTIN 300 MG CAP PO (20:27)
[2018-02-11] MEDS: ATORVASTATIN 80 MG TAB PO (20:27)
[2018-02-11 20:47] LABS: TROPONIN-I 0.655 ng/ml (0.000-0.120)
[2018-02-11] MEDS ORDERED: ZOLPIDEM 5 MG TAB PO (21:00)
[2018-02-11 21:03] LABS: ADD UMIC YES; UR ASCORBIC ACID NEGATIVE (NEGATIVE); UR BILIRUBIN (Dip) NEGATIVE (NEGATIVE); UR BLOOD (Dip) NEGATIVE (NEGATIVE); UR CLARITY CLEAR (CLEAR); UR COLOR YELLOW (YELLOW); UR GLUCOSE (Dip) 3+ mg/dL (NEGATIVE); UR KETONES (Dip) NEGATIVE (NEGATIVE); UR LEUKOCYTE ESTERASE (Dip) NEGATIVE Leu/ul (NEGATIVE); UR NITRITE (Dip) NEGATIVE (NEGATIVE); UR RBC 2 /HPF (0-5); UR SPECIFIC GRAVITY (Dip) 1.013 (1.003-1.030); UR TOTAL PROTEIN (Dip) 3+ mg/dl (NEGATIVE); UR UROBILINOGEN (Dip) NEGATIVE (NEGATIVE); UR WBC 4 /HPF (0-5)
[2018-02-12] MEDS: ACCU-CHEK XX (02:00)
[2018-02-12 07:14] LABS: ADD MAN DIFF? NO
[2018-02-12 07:21] LABS: BASOPHILS % 0.6 % (0.0-2.0); EOSINOPHILS # 0.2 10^3/ul (0.0-0.5); EOSINOPHILS % 3.4 % (0.0-7.0); LYMPHOCYTES # 1.4 10^3/ul (0.8-2.9); LYMPHOCYTES % 27.5 % (15.0-51.0); MEAN CORPUSCULAR HEMOGLOBIN 26.7 pg (29.0-33.0); MEAN CORPUSCULAR HGB CONC 30.8 g/dl (32.0-37.0); MEAN CORPUSCULAR VOLUME 86.7 fl (82.0-101.0); MONOCYTE # 0.4 10^3/ul (0.3-0.9); MONOCYTES % 8.6 % (0.0-11.0); NEUTROPHILS % 59.5 % (39.0-77.0); PLATELET COUNT 354 10^3/UL (140-415); RED CELL DISTRIBUTION WIDTH 15.8 % (11.5-14.5)
[2018-02-12 07:48] LABS: ANION GAP 9 (8-16); BLOOD UREA NITROGEN 30 mg/dl (7-20); CALCIUM 8.5 mg/dl (8.4-10.2); CARBON DIOXIDE 24 mmol/L (21-31); CHLORIDE 114 mmol/L (97-110); CREATININE 1.52 mg/dl (0.44-1.00); GLUCOSE 143 mg/dl (70-220); POTASSIUM 4.1 mmol/L (3.5-5.1); SODIUM 143 mmol/L (135-144)
[2018-02-12] MEDS: INSULIN ASPART [NOVOLOG] 3 ML PEN SC ×4 (07:55→21:07)
[2018-02-12 08:01] LABS: CK-MB 1.21 ng/ml (0.0-2.4)
[2018-02-12 08:01] LABS: MAGNESIUM 2.6 mg/dl (1.7-2.5)
[2018-02-12 08:02] LABS: CK INDEX 1.5; CREATINE KINASE 80 IU/L (23-200)
[2018-02-12 08:14] LABS: TROPONIN-I 0.623 ng/ml (0.000-0.120)
[2018-02-12] MEDS ORDERED: hydrALAzine 20 MG INJ (08:53)
[2018-02-12] MEDS ORDERED: NALOXONE (0.4 MG/ML) INJ (08:54)
[2018-02-12] MEDS: hydrALAzine 20 MG INJ IV ×2 (08:56→09:53)
[2018-02-12] MEDS: NALOXONE (0.4 MG/ML) INJ IV (08:57)
[2018-02-12] MEDS: NITROGLYCERIN (SL) 0.4 MG TAB SL ×7 (09:30→23:26)
[2018-02-12] MEDS: FERROUS SULFATE (EC) 325 MG TAB PO ×2 (09:48→21:05)
[2018-02-12] MEDS: CLOPIDOGREL 75 MG TAB PO (09:48)
[2018-02-12] MEDS: AMLODIPINE 10 MG TAB PO (09:49)
[2018-02-12] MEDS: ASPIRIN 81 MG TAB PO (09:49)
[2018-02-12 14:23] LABS: HEMOGLOBIN A1C 11.7 % (0-5.9)
[2018-02-12] MEDS: ACETAMINOPHEN 325 MG TAB PO (18:18)
[2018-02-12] MEDS: ATORVASTATIN 80 MG TAB PO (21:05)
[2018-02-12] MEDS: GABAPENTIN 300 MG CAP PO (21:05)
[2018-02-12] MEDS: INSULIN GLARGINE [LANtus] 3 ML PEN SC (21:06)
[2018-02-13] MEDS: ACCU-CHEK XX (02:00)
[2018-02-13 07:15] LABS: ADD MAN DIFF? NO
[2018-02-13 07:18] LABS: WHITE BLOOD COUNT 4.4 10^3/ul (4.8-10.8)
[2018-02-13 07:18] LABS: BASOPHILS % 0.7 % (0.0-2.0); EOSINOPHILS # 0.2 10^3/ul (0.0-0.5); EOSINOPHILS % 3.4 % (0.0-7.0); HEMATOCRIT 24.9 % (37.0-47.0); LYMPHOCYTES # 1.6 10^3/ul (0.8-2.9); LYMPHOCYTES % 35.6 % (15.0-51.0); MEAN CORPUSCULAR HEMOGLOBIN 28.1 pg (29.0-33.0); MEAN CORPUSCULAR HGB CONC 32.1 g/dl (32.0-37.0); MEAN CORPUSCULAR VOLUME 87.4 fl (82.0-101.0); MONOCYTE # 0.5 10^3/ul (0.3-0.9); NEUTROPHIL # 2.2 10^3/ul (1.6-7.5); NEUTROPHILS % 49.1 % (39.0-77.0); PLATELET COUNT 353 10^3/UL (140-415); RED BLOOD COUNT 2.85 10^6/ul (4.20-5.40); RED CELL DISTRIBUTION WIDTH 15.9 % (11.5-14.5)
[2018-02-13 07:48] LABS: ANION GAP 11 (8-16); BLOOD UREA NITROGEN 29 mg/dl (7-20); CALCIUM 8.5 mg/dl (8.4-10.2); CARBON DIOXIDE 22 mmol/L (21-31); CHLORIDE 112 mmol/L (97-110); CREATININE 1.58 mg/dl (0.44-1.00); GLUCOSE 145 mg/dl (70-220); SODIUM 141 mmol/L (135-144)
[2018-02-13] MEDS: INSULIN ASPART [NOVOLOG] 3 ML PEN SC ×4 (08:10→20:29)
[2018-02-13] MEDS: FERROUS SULFATE (EC) 325 MG TAB PO (08:14)
[2018-02-13] MEDS: CLOPIDOGREL 75 MG TAB PO (08:14)
[2018-02-13] MEDS: AMLODIPINE 10 MG TAB PO (08:14)
[2018-02-13] MEDS: ASPIRIN 81 MG TAB PO (08:14)
[2018-02-13] MEDS: NITROGLYCERIN (SL) 0.4 MG TAB SL (16:57)
[2018-02-13] MEDS: SOD FERRIC GLUC COMPLX 125 MG in SOD CHLORIDE 0.9% 100 ML IVPB (16:58)
[2018-02-13] MEDS: GABAPENTIN 300 MG CAP PO (20:26)
[2018-02-13] MEDS: ATORVASTATIN 80 MG TAB PO (20:27)
[2018-02-13] MEDS: NIFEdipine (XL) 90 MG TAB PO (20:27)
[2018-02-13] MEDS: ISOSORBIDE MONONITRATE(SR)60 MG TAB PO (20:29)
[2018-02-13] MEDS: INSULIN GLARGINE [LANtus] 3 ML PEN SC (21:08)
[2018-02-14] MEDS: ACCU-CHEK XX (02:00)
[2018-02-14] MEDS: GUAIFENESIN/DM 5ML CUP PO (02:56)
[2018-02-14] MEDS: HYDROCODONE/APAP (5/325) TAB PO ×2 (03:52→11:26)
[2018-02-14 07:04] LABS: ADD MAN DIFF? NO
[2018-02-14 07:11] LABS: WHITE BLOOD COUNT 5.2 10^3/ul (4.8-10.8)
[2018-02-14 07:11] LABS: BASOPHILS % 0.6 % (0.0-2.0); EOSINOPHILS # 0.2 10^3/ul (0.0-0.5); EOSINOPHILS % 3.5 % (0.0-7.0); HEMATOCRIT 23.7 % (37.0-47.0); HEMOGLOBIN 7.6 g/dl (12.0-16.0); LYMPHOCYTES # 1.5 10^3/ul (0.8-2.9); LYMPHOCYTES % 28.2 % (15.0-51.0); MEAN CORPUSCULAR HEMOGLOBIN 27.8 pg (29.0-33.0); MEAN CORPUSCULAR HGB CONC 32.1 g/dl (32.0-37.0); MEAN CORPUSCULAR VOLUME 86.8 fl (82.0-101.0); MEAN PLATELET VOLUME 10.8 fl (7.4-10.4); MONOCYTE # 0.6 10^3/ul (0.3-0.9); MONOCYTES % 11.7 % (0.0-11.0); NEUTROPHIL # 2.9 10^3/ul (1.6-7.5); NEUTROPHILS % 55.8 % (39.0-77.0); PLATELET COUNT 373 10^3/UL (140-415); RED BLOOD COUNT 2.73 10^6/ul (4.20-5.40)
[2018-02-14 07:32] LABS: CREATINE KINASE 69 IU/L (23-200)
[2018-02-14 07:45] LABS: CK INDEX 1.1; CK-MB 0.73 ng/ml (0.0-2.4)
[2018-02-14 07:46] LABS: TROPONIN-I 0.282 ng/ml (0.000-0.120)
[2018-02-14 07:52] LABS: ALANINE AMINOTRANSFERASE 30 IU/L (13-69); ALBUMIN 2.6 g/dl (3.3-4.9); ALKALINE PHOSPHATASE 103 IU/L (42-121); ANION GAP 9 (8-16); ASPARTATE AMINO TRANSFERASE 22 IU/L (15-46); BILIRUBIN,INDIRECT 0.2 mg/dl (0-1.1); BILIRUBIN,TOTAL 0.2 mg/dl (0.2-1.3); BLOOD UREA NITROGEN 36 mg/dl (7-20); CALCIUM 8.4 mg/dl (8.4-10.2); CARBON DIOXIDE 21 mmol/L (21-31); CHLORIDE 115 mmol/L (97-110); GLUCOSE 98 mg/dl (70-220); POTASSIUM 4.3 mmol/L (3.5-5.1); SODIUM 141 mmol/L (135-144); TOTAL PROTEIN 5.2 g/dl (6.1-8.1)
[2018-02-14] MEDS: INSULIN ASPART [NOVOLOG] 3 ML PEN SC ×4 (07:55→20:29)
[2018-02-14] MEDS: ASPIRIN 81 MG TAB PO (08:27)
[2018-02-14] MEDS: NIFEdipine (XL) 90 MG TAB PO (08:27)
[2018-02-14] MEDS: CLOPIDOGREL 75 MG TAB PO (08:27)
[2018-02-14] MEDS: ISOSORBIDE MONONITRATE(SR)60 MG TAB PO ×2 (08:27→20:24)
[2018-02-14] MEDS: SOD FERRIC GLUC COMPLX 125 MG in SOD CHLORIDE 0.9% 100 ML IVPB (18:09)
[2018-02-14] MEDS: ATORVASTATIN 80 MG TAB PO (20:24)
[2018-02-14] MEDS: GABAPENTIN 300 MG CAP PO (20:24)
[2018-02-14] MEDS: NIFEdipine (XL) 60 MG TAB PO (20:25)
[2018-02-14] MEDS: INSULIN GLARGINE [LANtus] 3 ML PEN SC (20:29)
[2018-02-15] MEDS: ACCU-CHEK XX (02:30)
[2018-02-15] MEDS: PANTOPRAZOLE 40 MG INJ IV (05:20)
[2018-02-15 07:22] LABS: ADD MAN DIFF? NO
[2018-02-15 07:28] LABS: BASOPHIL # 0.1 10^3/ul (0.0-0.1); BASOPHILS % 0.9 % (0.0-2.0); EOSINOPHILS # 0.2 10^3/ul (0.0-0.5); EOSINOPHILS % 4.1 % (0.0-7.0); HEMATOCRIT 23.7 % (37.0-47.0); HEMOGLOBIN 7.4 g/dl (12.0-16.0); LYMPHOCYTES # 1.6 10^3/ul (0.8-2.9); LYMPHOCYTES % 27.4 % (15.0-51.0); MEAN CORPUSCULAR HEMOGLOBIN 27.4 pg (29.0-33.0); MEAN CORPUSCULAR HGB CONC 31.2 g/dl (32.0-37.0); MEAN CORPUSCULAR VOLUME 87.8 fl (82.0-101.0); MEAN PLATELET VOLUME 10.6 fl (7.4-10.4); MONOCYTE # 0.5 10^3/ul (0.3-0.9); NEUTROPHIL # 3.4 10^3/ul (1.6-7.5); NEUTROPHILS % 58.1 % (39.0-77.0); PLATELET COUNT 396 10^3/UL (140-415)
[2018-02-15 07:28] LABS: WHITE BLOOD COUNT 5.8 10^3/ul (4.8-10.8)
[2018-02-15 07:49] LABS: MAGNESIUM 2.6 mg/dl (1.7-2.5)
[2018-02-15 07:49] LABS: PHOSPHORUS 5.2 mg/dl (2.5-4.9)
[2018-02-15 07:55] LABS: ANION GAP 9 (8-16); BLOOD UREA NITROGEN 36 mg/dl (7-20); CALCIUM 8.2 mg/dl (8.4-10.2); CARBON DIOXIDE 22 mmol/L (21-31); CHLORIDE 115 mmol/L (97-110); CREATININE 1.56 mg/dl (0.44-1.00); GLUCOSE 104 mg/dl (70-220); POTASSIUM 4.5 mmol/L (3.5-5.1); SODIUM 141 mmol/L (135-144)
[2018-02-15] MEDS: INSULIN ASPART [NOVOLOG] 3 ML PEN SC ×4 (07:55→21:16)
[2018-02-15] MEDS: ASPIRIN 81 MG TAB PO (08:37)
[2018-02-15] MEDS: CLOPIDOGREL 75 MG TAB PO (08:37)
[2018-02-15] MEDS: ISOSORBIDE MONONITRATE(SR)60 MG TAB PO ×2 (08:39→20:44)
[2018-02-15] MEDS: NIFEdipine (XL) 60 MG TAB PO (08:39)
[2018-02-15 12:37] LABS: RETICULOCYTE COUNT # 0.087 X10^6 (0.020-0.110); RETICULOCYTE COUNT % 3.2 % (0.5-1.5)
[2018-02-15 12:40] LABS: IRON 104 ug/dl (35-150)
[2018-02-15 12:49] LABS: % IRON SATURATION 36 % SAT (22-52); TOTAL IRON BINDING CAPACITY 289 ug/dl (241-421)
[2018-02-15 14:12] LABS: FOLATE 9.3 ng/ml (2.8-20.0)
[2018-02-15] MEDS: ACETAMINOPHEN 325 MG TAB PO ×2 (16:21→21:52)
[2018-02-15] MEDS: SOD FERRIC GLUC COMPLX 125 MG in SOD CHLORIDE 0.9% 100 ML IVPB (17:19)
[2018-02-15] MEDS: ATORVASTATIN 80 MG TAB PO (20:43)
[2018-02-15] MEDS: GABAPENTIN 300 MG CAP PO (20:43)
[2018-02-15] MEDS: NIFEdipine (XL) 30 MG TAB PO (20:44)
[2018-02-15] MEDS: INSULIN GLARGINE [LANtus] 3 ML PEN SC (21:00)
[2018-02-15] MEDS: DOCUSATE SODIUM 100 MG CAP PO (21:01)
[2018-02-15 22:16] LABS: IMMEDIATE SPIN CROSSMATCH 1 1
[2018-02-16] MEDS: ACCU-CHEK XX (02:00)
[2018-02-16] MEDS: KETOROLAC 30 MG INJ IV (04:57)
[2018-02-16] MEDS: ONDANSETRON 4 MG INJ IV ×2 (05:00→11:52)
[2018-02-16] MEDS ORDERED: morphine 2 MG INJ (05:09)
[2018-02-16] MEDS: PANTOPRAZOLE 40 MG INJ IV (05:10)
[2018-02-16] MEDS: morphine 2 MG INJ IV (05:11)
[2018-02-16 05:15] LABS: ADD MAN DIFF? NO
[2018-02-16 05:17] LABS: WHITE BLOOD COUNT 5.3 10^3/ul (4.8-10.8)
[2018-02-16 05:17] LABS: BASOPHILS % 0.8 % (0.0-2.0); EOSINOPHILS # 0.2 10^3/ul (0.0-0.5); EOSINOPHILS % 4.5 % (0.0-7.0); HEMATOCRIT 27.4 % (37.0-47.0); HEMOGLOBIN 9.1 g/dl (12.0-16.0); LYMPHOCYTES # 1.7 10^3/ul (0.8-2.9); LYMPHOCYTES % 32.5 % (15.0-51.0); MEAN CORPUSCULAR HEMOGLOBIN 28.7 pg (29.0-33.0); MEAN CORPUSCULAR HGB CONC 33.2 g/dl (32.0-37.0); MEAN CORPUSCULAR VOLUME 86.4 fl (82.0-101.0); MEAN PLATELET VOLUME 10.2 fl (7.4-10.4); MONOCYTE # 0.5 10^3/ul (0.3-0.9); MONOCYTES % 8.9 % (0.0-11.0); NEUTROPHIL # 2.8 10^3/ul (1.6-7.5); NEUTROPHILS % 53.1 % (39.0-77.0); PLATELET COUNT 366 10^3/UL (140-415); RED BLOOD COUNT 3.17 10^6/ul (4.20-5.40); RED CELL DISTRIBUTION WIDTH 15.3 % (11.5-14.5)
[2018-02-16 05:45] LABS: AMMONIA 26 umol/l (9-30); LIPASE 53 U/L (23-300)
[2018-02-16 05:46] LABS: MAGNESIUM 2.6 mg/dl (1.7-2.5)
[2018-02-16 05:46] LABS: PHOSPHORUS 4.7 mg/dl (2.5-4.9)
[2018-02-16 05:53] LABS: ANION GAP 11 (8-16); BLOOD UREA NITROGEN 37 mg/dl (7-20); CALCIUM 8.5 mg/dl (8.4-10.2); CARBON DIOXIDE 20 mmol/L (21-31); CHLORIDE 113 mmol/L (97-110); CREATININE 1.42 mg/dl (0.44-1.00); GLUCOSE 124 mg/dl (70-220); POTASSIUM 4.6 mmol/L (3.5-5.1); SODIUM 139 mmol/L (135-144)
[2018-02-16] MEDS: INSULIN ASPART [NOVOLOG] 3 ML PEN SC ×4 (07:55→21:00)
[2018-02-16] MEDS: NIFEdipine (XL) 30 MG TAB PO ×2 (08:35→21:07)
[2018-02-16] MEDS: CLOPIDOGREL 75 MG TAB PO (08:35)
[2018-02-16] MEDS: ISOSORBIDE MONONITRATE(SR)60 MG TAB PO ×2 (08:35→21:08)
[2018-02-16] MEDS: ASPIRIN 81 MG TAB PO (08:35)
[2018-02-16 14:08] LABS: HAPTOGLOBIN 182 mg/dL (43-212)
[2018-02-16] MEDS ORDERED: NITROGLYCERIN (IC) 100 MCG/ML INJ (14:45)
[2018-02-16] MEDS ORDERED: IOHEXOL 350MG/ML 50 ML BTL (14:45)
[2018-02-16] MEDS ORDERED: IODIXANOL LOCM 100 ML BTL (14:45)
[2018-02-16] MEDS ORDERED: HEPARIN 1000 UNITS/ML 10 ML INJ (14:45)
[2018-02-16] MEDS ORDERED: BIVALIRUDIN 250MG /NS 50 ML 50 ML IVPB (14:45)
[2018-02-16] MEDS ORDERED: LIDOCAINE 1% (MDV) 20 ML INJ (14:45)
[2018-02-16] MEDS ORDERED: MIDAZOLAM 1 MG/ML 2 ML INJ (14:45)
[2018-02-16] MEDS ORDERED: FENTAnyl 50 MCG/ML VIAL (14:45)
[2018-02-16] MEDS ORDERED: VERAPAMIL 5 MG INJ (14:45)
[2018-02-16] MEDS ORDERED: CLOPIDOGREL 75 MG TAB (15:55)
[2018-02-16] MEDS: SOD CHLORIDE 0.9% 1,000 ML IV (16:06)
[2018-02-16] MEDS: ATORVASTATIN 80 MG TAB PO (21:07)
[2018-02-16] MEDS: ACETYLCYSTEINE 600 MG CAP PO (21:08)
[2018-02-16] MEDS: GABAPENTIN 300 MG CAP PO (21:08)
[2018-02-16] MEDS: INSULIN GLARGINE [LANtus] 3 ML PEN SC (21:50)
[2018-02-17] MEDS: ACCU-CHEK XX (02:49)
[2018-02-17 05:35] LABS: ADD MAN DIFF? NO
[2018-02-17 05:40] LABS: WHITE BLOOD COUNT 5.1 10^3/ul (4.8-10.8)
[2018-02-17 05:40] LABS: BASOPHILS % 0.6 % (0.0-2.0); EOSINOPHILS # 0.2 10^3/ul (0.0-0.5); HEMATOCRIT 25.6 % (37.0-47.0); LYMPHOCYTES # 1.3 10^3/ul (0.8-2.9); LYMPHOCYTES % 26.5 % (15.0-51.0); MEAN CORPUSCULAR HEMOGLOBIN 27.5 pg (29.0-33.0); MEAN CORPUSCULAR HGB CONC 31.3 g/dl (32.0-37.0); MEAN PLATELET VOLUME 10.5 fl (7.4-10.4); MONOCYTE # 0.5 10^3/ul (0.3-0.9); MONOCYTES % 10.1 % (0.0-11.0); NEUTROPHILS % 58.6 % (39.0-77.0); PLATELET COUNT 335 10^3/UL (140-415); RED BLOOD COUNT 2.91 10^6/ul (4.20-5.40); RED CELL DISTRIBUTION WIDTH 15.8 % (11.5-14.5)
[2018-02-17] MEDS: PANTOPRAZOLE 40 MG INJ IV (06:10)
[2018-02-17 06:24] LABS: MAGNESIUM 2.5 mg/dl (1.7-2.5)
[2018-02-17 06:24] LABS: PHOSPHORUS 4.2 mg/dl (2.5-4.9)
[2018-02-17 06:32] LABS: ANION GAP 9 (8-16); BLOOD UREA NITROGEN 30 mg/dl (7-20); CALCIUM 8.2 mg/dl (8.4-10.2); CARBON DIOXIDE 20 mmol/L (21-31); CHLORIDE 117 mmol/L (97-110); CREATININE 1.36 mg/dl (0.44-1.00); GLUCOSE 84 mg/dl (70-220); POTASSIUM 4.6 mmol/L (3.5-5.1); SODIUM 141 mmol/L (135-144)
[2018-02-17 06:56] LABS: PROTEIN, TOTAL 5.2 g/dL (6.1-8.1)
[2018-02-17] MEDS: INSULIN ASPART [NOVOLOG] 3 ML PEN SC ×4 (07:35→21:02)
[2018-02-17] MEDS: CLOPIDOGREL 75 MG TAB PO (08:09)
[2018-02-17] MEDS: NIFEdipine (XL) 30 MG TAB PO ×2 (08:09→20:58)
[2018-02-17] MEDS: ASPIRIN 81 MG TAB PO (08:10)
[2018-02-17] MEDS: ISOSORBIDE MONONITRATE(SR)60 MG TAB PO ×2 (08:10→20:57)
[2018-02-17] MEDS: ACETYLCYSTEINE 600 MG CAP PO ×2 (08:10→20:54)
[2018-02-17] MEDS: FUROSEMIDE 20 MG INJ IV (10:41)
[2018-02-17] MEDS: DOCUSATE SODIUM 100 MG CAP PO (10:54)
[2018-02-17 20:26] LABS: ERYTHROPOIETIN 8.5 mIU/mL (2.6-18.5)
[2018-02-17] MEDS: GABAPENTIN 300 MG CAP PO (20:54)
[2018-02-17] MEDS: ATORVASTATIN 80 MG TAB PO (20:57)
[2018-02-17] MEDS: INSULIN GLARGINE [LANtus] 3 ML PEN SC (21:03)
[2018-02-17 22:42] LABS: ALBUMIN 2.4 g/dL (3.8-4.8); ALPHA-1-GLOBULINS 0.4 g/dL (0.2-0.3); BETA 2 GLOBULINS 0.4 g/dL (0.2-0.5); BETA GLOBULINS 0.4 g/dL (0.4-0.6); GAMMA GLOBULINS 0.7 g/dL (0.8-1.7)
[2018-02-18] MEDS: morphine LIQ (10 MG/5 ML) CUP PO (01:39)
[2018-02-18] MEDS: HYDROCODONE/APAP (5/325) TAB PO (03:35)
[2018-02-18] MEDS: ACCU-CHEK XX (03:36)
[2018-02-18] MEDS: PANTOPRAZOLE 40 MG INJ IV (05:13)
[2018-02-18] MEDS: INSULIN ASPART [NOVOLOG] 3 ML PEN SC ×4 (07:55→21:00)
[2018-02-18 08:22] LABS: ANION GAP 8 (8-16); BLOOD UREA NITROGEN 32 mg/dl (7-20); CALCIUM 8.5 mg/dl (8.4-10.2); CARBON DIOXIDE 20 mmol/L (21-31); CHLORIDE 118 mmol/L (97-110); CREATININE 1.31 mg/dl (0.44-1.00); GLUCOSE 79 mg/dl (70-220); POTASSIUM 4.5 mmol/L (3.5-5.1); SODIUM 141 mmol/L (135-144)
[2018-02-18] MEDS: ISOSORBIDE MONONITRATE(SR)60 MG TAB PO ×2 (08:46→21:30)
[2018-02-18] MEDS: CYANOCOBALAMIN 500 MCG TAB PO (08:47)
[2018-02-18] MEDS: ASPIRIN 81 MG TAB PO (08:48)
[2018-02-18] MEDS: CLOPIDOGREL 75 MG TAB PO (08:48)
[2018-02-18] MEDS: NIFEdipine (XL) 30 MG TAB PO ×2 (08:48→21:30)
[2018-02-18] MEDS: FUROSEMIDE 20 MG INJ IV (15:44)
[2018-02-18] MEDS: GABAPENTIN 300 MG CAP PO (21:30)
[2018-02-18] MEDS: ATORVASTATIN 80 MG TAB PO (21:30)
[2018-02-18] MEDS: INSULIN GLARGINE [LANtus] 3 ML PEN SC (21:31)
[2018-02-19 00:07] LABS: ERYTHROPOIETIN 11.6 mIU/mL (2.6-18.5)
[2018-02-19] MEDS: ACCU-CHEK XX (02:00)
[2018-02-19] MEDS: PANTOPRAZOLE 40 MG INJ IV (05:22)
[2018-02-19 06:06] LABS: ADD MAN DIFF? NO
[2018-02-19 06:10] LABS: BASOPHIL # 0.1 10^3/ul (0.0-0.1); BASOPHILS % 0.9 % (0.0-2.0); EOSINOPHILS # 0.2 10^3/ul (0.0-0.5); EOSINOPHILS % 4.1 % (0.0-7.0); HEMATOCRIT 26.2 % (37.0-47.0); HEMOGLOBIN 8.4 g/dl (12.0-16.0); LYMPHOCYTES # 1.5 10^3/ul (0.8-2.9); MEAN CORPUSCULAR HEMOGLOBIN 27.9 pg (29.0-33.0); MEAN CORPUSCULAR HGB CONC 32.1 g/dl (32.0-37.0); MEAN PLATELET VOLUME 10.4 fl (7.4-10.4); MONOCYTE # 0.5 10^3/ul (0.3-0.9); MONOCYTES % 8.7 % (0.0-11.0); NEUTROPHIL # 3.2 10^3/ul (1.6-7.5); NEUTROPHILS % 58.1 % (39.0-77.0); PLATELET COUNT 316 10^3/UL (140-415); RED BLOOD COUNT 3.01 10^6/ul (4.20-5.40)
[2018-02-19 06:10] LABS: WHITE BLOOD COUNT 5.4 10^3/ul (4.8-10.8)
[2018-02-19 06:30] LABS: MAGNESIUM 2.2 mg/dl (1.7-2.5)
[2018-02-19 06:33] LABS: ANION GAP 7 (8-16); BLOOD UREA NITROGEN 33 mg/dl (7-20); CALCIUM 8.4 mg/dl (8.4-10.2); CARBON DIOXIDE 21 mmol/L (21-31); CHLORIDE 114 mmol/L (97-110); CREATININE 1.42 mg/dl (0.44-1.00); GLUCOSE 141 mg/dl (70-220); POTASSIUM 4.4 mmol/L (3.5-5.1); SODIUM 138 mmol/L (135-144)
[2018-02-19] MEDS: ASPIRIN 81 MG TAB PO (08:06)
[2018-02-19] MEDS: CLOPIDOGREL 75 MG TAB PO (08:06)
[2018-02-19] MEDS: NIFEdipine (XL) 30 MG TAB PO ×2 (08:07→21:23)
[2018-02-19] MEDS: CYANOCOBALAMIN 500 MCG TAB PO (08:07)
[2018-02-19] MEDS: ISOSORBIDE MONONITRATE(SR)60 MG TAB PO ×2 (08:07→21:22)
[2018-02-19] MEDS: FUROSEMIDE 40 MG TAB PO (08:08)
[2018-02-19] MEDS: INSULIN ASPART [NOVOLOG] 3 ML PEN SC ×4 (08:28→21:00)
[2018-02-19] MEDS: BISACODYL (EC) 5 MG TAB PO (10:56)
[2018-02-19] MEDS: MAGNESIUM CITRATE 300 ML BTL PO (14:27)
[2018-02-19] MEDS: BISACODYL 10 MG SUPP PR (18:33)
[2018-02-19] MEDS: ATORVASTATIN 80 MG TAB PO (21:21)
[2018-02-19] MEDS: GABAPENTIN 300 MG CAP PO (21:23)
[2018-02-19] MEDS: INSULIN GLARGINE [LANtus] 3 ML PEN SC (21:26)
[2018-02-20] MEDS: ACCU-CHEK XX (02:00)
[2018-02-20] MEDS: ONDANSETRON 4 MG INJ IV (03:54)
[2018-02-20] MEDS: PANTOPRAZOLE (EC) 40 MG TAB PO (05:11)
[2018-02-20] MEDS: INSULIN ASPART [NOVOLOG] 3 ML PEN SC ×4 (07:55→20:32)
[2018-02-20] MEDS: NIFEdipine (XL) 30 MG TAB PO ×2 (08:27→20:31)
[2018-02-20] MEDS: ASPIRIN 81 MG TAB PO (08:27)
[2018-02-20] MEDS: FUROSEMIDE 40 MG TAB PO (08:27)
[2018-02-20] MEDS: CLOPIDOGREL 75 MG TAB PO (08:27)
[2018-02-20] MEDS: CYANOCOBALAMIN 500 MCG TAB PO (08:28)
[2018-02-20] MEDS: ISOSORBIDE MONONITRATE(SR)60 MG TAB PO ×2 (08:28→20:31)
[2018-02-20] MEDS: morphine LIQ (10 MG/5 ML) CUP PO (08:29)
[2018-02-20] MEDS: AMLODIPINE 2.5 MG TAB PO (09:30)
[2018-02-20] MEDS: ATORVASTATIN 80 MG TAB PO (20:31)
[2018-02-20] MEDS: GABAPENTIN 300 MG CAP PO (20:31)
[2018-02-20] MEDS: INSULIN GLARGINE [LANtus] 3 ML PEN SC (20:36)
[2018-02-21] MEDS: ACCU-CHEK XX (01:34)
[2018-02-21] MEDS: PANTOPRAZOLE (EC) 40 MG TAB PO (05:55)
[2018-02-21] MEDS: INSULIN ASPART [NOVOLOG] 3 ML PEN SC ×4 (07:55→20:29)
[2018-02-21] MEDS: CLOPIDOGREL 75 MG TAB PO (08:31)
[2018-02-21] MEDS: CYANOCOBALAMIN 500 MCG TAB PO (08:31)
[2018-02-21] MEDS: ISOSORBIDE MONONITRATE(SR)60 MG TAB PO ×2 (08:32→20:25)
[2018-02-21] MEDS: NIFEdipine (XL) 30 MG TAB PO ×2 (08:32→20:26)
[2018-02-21] MEDS: FUROSEMIDE 40 MG TAB PO (08:32)
[2018-02-21] MEDS: ASPIRIN 81 MG TAB PO (08:32)
[2018-02-21] MEDS: AMLODIPINE 5 MG TAB PO (08:33)
[2018-02-21] MEDS: ATORVASTATIN 80 MG TAB PO (20:24)
[2018-02-21] MEDS: GABAPENTIN 300 MG CAP PO (20:25)
[2018-02-21] MEDS: INSULIN GLARGINE [LANtus] 3 ML PEN SC (20:29)
[2018-02-22] MEDS: ACCU-CHEK XX (01:10)
[2018-02-22] MEDS: HYDROCODONE/APAP (5/325) TAB PO (01:14)
[2018-02-22] MEDS: PANTOPRAZOLE (EC) 40 MG TAB PO (06:33)
[2018-02-22] MEDS: INSULIN ASPART [NOVOLOG] 3 ML PEN SC ×2 (07:55→12:13)
[2018-02-22] MEDS: CYANOCOBALAMIN 500 MCG TAB PO (08:28)
[2018-02-22] MEDS: FUROSEMIDE 40 MG TAB PO (08:28)
[2018-02-22] MEDS: CLOPIDOGREL 75 MG TAB PO (08:29)
[2018-02-22] MEDS: AMLODIPINE 10 MG TAB PO (08:30)
[2018-02-22] MEDS: ISOSORBIDE MONONITRATE(SR)60 MG TAB PO (08:30)
[2018-02-22] MEDS: NIFEdipine (XL) 30 MG TAB PO (08:31)
[2018-02-22] MEDS: ASPIRIN 81 MG TAB PO (08:31)
== END 2018-02-22 17:10 | disposition home or self-care (01) | DRG 247 ==
LOC: TEL 00:49 → ICU 02-16 16:20
PROVIDERS: Internal Medicine Nephrology
PROC: 027034Z Dilation of Coronary Artery, One Artery with Drug-eluting Intraluminal Device, Percutaneous Approach (ICD-10-PCS; principal; 2018-02-16 14:37)
PROC: 4A023N7 Measurement of Cardiac Sampling and Pressure, Left Heart, Percutaneous Approach (ICD-10-PCS; 2018-02-16 14:37)
PROC: B210YZZ Fluoroscopy of Single Coronary Artery using Other Contrast (ICD-10-PCS; 2018-02-16 14:37)
PROC: 30233N1 Transfusion of Nonautologous Red Blood Cells into Peripheral Vein, Percutaneous Approach (ICD-10-PCS; 2018-02-16 14:37)
DX: I21.4 Non-ST elevation (NSTEMI) myocardial infarction (principal); N17.9 Acute kidney failure, unspecified; I25.10 Atherosclerotic heart disease of native coronary artery without angina pectoris; I16.0 Hypertensive urgency; D64.9 Anemia, unspecified; E11.22 Type 2 diabetes mellitus with diabetic chronic kidney disease; E11.65 Type 2 diabetes mellitus with hyperglycemia; I12.9 Hypertensive chronic kidney disease with stage 1 through stage 4 chronic kidney disease, or unspecified chronic kidney disease; N18.9 Chronic kidney disease, unspecified; E78.5 Hyperlipidemia, unspecified; E66.3 Overweight; R51 Headache; Z68.29 Body mass index [BMI] 29.0-29.9, adult; Z95.5 Presence of coronary angioplasty implant and graft
CPT/HCPCS: 36430; 70450; 71045; 74018; 80048; 80053; 81001; 82140; 82550; 82553; 82607; 82668; 82746; 82962; 83010; 83036; 83540; 83690; 83735; 84100; 84155; 84165; 84484; 85025; 85045; 86850; 86880; 86900; 86901; 86920; 87081; 93005; 93306; 93458; 93970; 93971; 97110; 97116; 97161

== ENCOUNTER 2018-03-11 13:01 | Inpatient (IN) | payer OTHER ==
[2018-03-11] MEDS: SOD CHLORIDE 0.9% 2,000 ML IV (13:28)
[2018-03-11 13:29] LABS: ADD MAN DIFF? NO
[2018-03-11 13:35] LABS: WHITE BLOOD COUNT 5.4 10^3/ul (4.8-10.8)
[2018-03-11 13:35] LABS: BASOPHILS % 0.6 % (0.0-2.0); EOSINOPHILS # 0.2 10^3/ul (0.0-0.5); EOSINOPHILS % 2.9 % (0.0-7.0); HEMATOCRIT 33.7 % (37.0-47.0); LYMPHOCYTES # 1.4 10^3/ul (0.8-2.9); LYMPHOCYTES % 25.2 % (15.0-51.0); MEAN CORPUSCULAR HEMOGLOBIN 28.1 pg (29.0-33.0); MEAN CORPUSCULAR HGB CONC 32.6 g/dl (32.0-37.0); MEAN CORPUSCULAR VOLUME 86.2 fl (82.0-101.0); MEAN PLATELET VOLUME 11.5 fl (7.4-10.4); MONOCYTE # 0.4 10^3/ul (0.3-0.9); MONOCYTES % 7.4 % (0.0-11.0); NEUTROPHIL # 3.5 10^3/ul (1.6-7.5); NEUTROPHILS % 63.5 % (39.0-77.0); PLATELET COUNT 312 10^3/UL (140-415); RED BLOOD COUNT 3.91 10^6/ul (4.20-5.40)
[2018-03-11 14:14] LABS: LACTIC ACID 1.3 mmol/L (0.5-2.0)
[2018-03-11 14:15] LABS: ANION GAP 15 (8-16); BLOOD UREA NITROGEN 69 mg/dl (7-20); CALCIUM 9.3 mg/dl (8.4-10.2); CARBON DIOXIDE 18 mmol/L (21-31); CHLORIDE 108 mmol/L (97-110); CREATININE 2.04 mg/dl (0.44-1.00); SODIUM 136 mmol/L (135-144)
[2018-03-11 14:22] LABS: GLUCOSE 598 mg/dl (70-220)
[2018-03-11] MEDS: INSULIN LISPRO 100 UNIT/ML VIAL SC (15:16)
[2018-03-11] MEDS: LACTATED RINGER'S 1,000 ML IV (15:17)
[2018-03-11 15:50] LABS: UR RBC 2 /HPF (0-5); UR SQUAMOUS EPITHELIAL CELL FEW /HPF (FEW); UR WBC 2 /HPF (0-5)
[2018-03-11 16:04] LABS: ADD UMIC YES; UR ASCORBIC ACID NEGATIVE (NEGATIVE); UR BILIRUBIN (Dip) NEGATIVE (NEGATIVE); UR BLOOD (Dip) NEGATIVE (NEGATIVE); UR CLARITY CLEAR (CLEAR); UR COLOR STRAW (YELLOW); UR GLUCOSE (Dip) 3+ mg/dL (NEGATIVE); UR KETONES (Dip) NEGATIVE (NEGATIVE); UR LEUKOCYTE ESTERASE (Dip) NEGATIVE Leu/ul (NEGATIVE); UR NITRITE (Dip) NEGATIVE (NEGATIVE); UR TOTAL PROTEIN (Dip) 2+ mg/dl (NEGATIVE); UR UROBILINOGEN (Dip) NEGATIVE (NEGATIVE)
[2018-03-11] MEDS ORDERED: ACETAMINOPHEN 325 MG TAB PO (16:30)
[2018-03-11] MEDS ORDERED: ONDANSETRON 4 MG INJ IV ×2 (16:30→18:00)
[2018-03-11] MEDS ORDERED: NACL 0.9% 3 ML SYG IV (18:00)
[2018-03-11] MEDS ORDERED: HYDROCODONE/APAP (5/325) TAB PO (18:00)
[2018-03-11] MEDS ORDERED: GLUCOSE GEL 15 GRAM TUBE PO ×2 (18:30)
[2018-03-11] MEDS ORDERED: DEXTROSE 50% 50 ML SYRINGE IV ×2 (18:30)
[2018-03-11] MEDS ORDERED: NITROGLYCERIN (SL) 0.4 MG TAB SL (18:30)
[2018-03-11] MEDS ORDERED: GLUCOSE GEL 15 GRAM TUBE BUCCAL (18:30)
[2018-03-11] MEDS ORDERED: GLUCAGON 1 MG INJ IM (18:30)
[2018-03-11] MEDS: SOD CHLORIDE 0.9% 1,000 ML IV (18:43)
[2018-03-11] MEDS: INSULIN GLARGINE [LANtus] 3 ML PEN SC (20:28)
[2018-03-11] MEDS: FAMOTIDINE 20 MG TAB PO (20:30)
[2018-03-11] MEDS: ATORVASTATIN 80 MG TAB PO (20:30)
[2018-03-11] MEDS: INSULIN ASPART [NOVOLOG] 3 ML PEN SC (20:31)
[2018-03-11] MEDS: DOCUSATE SODIUM 100 MG CAP PO (20:35)
[2018-03-12] MEDS: ACCU-CHEK XX (01:58)
[2018-03-12 05:15] LABS: ADD MAN DIFF? NO
[2018-03-12 05:24] LABS: WHITE BLOOD COUNT 5.7 10^3/ul (4.8-10.8)
[2018-03-12 05:24] LABS: BASOPHILS % 0.7 % (0.0-2.0); EOSINOPHILS # 0.2 10^3/ul (0.0-0.5); EOSINOPHILS % 3.7 % (0.0-7.0); HEMATOCRIT 29.7 % (37.0-47.0); HEMOGLOBIN 9.7 g/dl (12.0-16.0); LYMPHOCYTES # 1.5 10^3/ul (0.8-2.9); MEAN CORPUSCULAR HGB CONC 32.7 g/dl (32.0-37.0); MEAN CORPUSCULAR VOLUME 85.8 fl (82.0-101.0); MEAN PLATELET VOLUME 11.6 fl (7.4-10.4); MONOCYTE # 0.5 10^3/ul (0.3-0.9); MONOCYTES % 9.3 % (0.0-11.0); NEUTROPHIL # 3.4 10^3/ul (1.6-7.5); NEUTROPHILS % 60.1 % (39.0-77.0); PLATELET COUNT 313 10^3/UL (140-415); RED BLOOD COUNT 3.46 10^6/ul (4.20-5.40); RED CELL DISTRIBUTION WIDTH 14.3 % (11.5-14.5)
[2018-03-12 06:03] LABS: ANION GAP 10 (8-16); BLOOD UREA NITROGEN 43 mg/dl (7-20); CALCIUM 9.2 mg/dl (8.4-10.2); CARBON DIOXIDE 21 mmol/L (21-31); CHLORIDE 120 mmol/L (97-110); CREATININE 1.42 mg/dl (0.44-1.00); GLUCOSE 158 mg/dl (70-220); MAGNESIUM 1.9 mg/dl (1.7-2.5); PHOSPHORUS 3.8 mg/dl (2.5-4.9); SODIUM 147 mmol/L (135-144)
[2018-03-12 07:07] LABS: HEMOGLOBIN A1C 9.3 % (0-5.9)
[2018-03-12] MEDS: CLOPIDOGREL 75 MG TAB PO (08:48)
[2018-03-12] MEDS: SOD CHLORIDE 0.9% 1,000 ML IV (08:48)
[2018-03-12] MEDS: INSULIN ASPART [NOVOLOG] 3 ML PEN SC ×4 (08:58→20:56)
[2018-03-12] MEDS: ENOXAPARIN 30 MG/0.3 ML SYG SC (08:58)
[2018-03-12] MEDS: ISOSORBIDE MONONITRATE(SR)60 MG TAB PO (16:12)
[2018-03-12] MEDS: FAMOTIDINE 20 MG TAB PO (20:09)
[2018-03-12] MEDS: ATORVASTATIN 80 MG TAB PO (20:10)
[2018-03-12] MEDS: INSULIN GLARGINE [LANtus] 3 ML PEN SC (20:54)
[2018-03-13] MEDS: ACCU-CHEK XX (02:00)
[2018-03-13 07:03] LABS: ANION GAP 12 (8-16); BLOOD UREA NITROGEN 30 mg/dl (7-20); CALCIUM 9.2 mg/dl (8.4-10.2); CARBON DIOXIDE 22 mmol/L (21-31); CHLORIDE 114 mmol/L (97-110); CREATININE 1.26 mg/dl (0.44-1.00); GLUCOSE 200 mg/dl (70-220); POTASSIUM 3.7 mmol/L (3.5-5.1); SODIUM 144 mmol/L (135-144)
[2018-03-13] MEDS: INSULIN ASPART [NOVOLOG] 3 ML PEN SC ×5 (07:59→20:29)
[2018-03-13] MEDS: ISOSORBIDE MONONITRATE(SR)60 MG TAB PO (08:22)
[2018-03-13] MEDS: CLOPIDOGREL 75 MG TAB PO (08:23)
[2018-03-13] MEDS: FAMOTIDINE 20 MG TAB PO (20:12)
[2018-03-13] MEDS: LUBIPROSTONE 24 MCG CAP PO (20:12)
[2018-03-13] MEDS: ATORVASTATIN 80 MG TAB PO (20:12)
[2018-03-13] MEDS: INSULIN GLARGINE [LANtus] 3 ML PEN SC (20:24)
[2018-03-13] MEDS: DOCUSATE SODIUM 100 MG CAP PO (20:34)
[2018-03-14] MEDS ORDERED: NIFEdipine 10 MG CAP PO
[2018-03-14] MEDS: LORAZEPAM 0.5 MG TAB PO (00:14)
[2018-03-14] MEDS: NIFEdipine (XL) 60 MG TAB PO ×2 (00:14→08:12)
[2018-03-14] MEDS: ACCU-CHEK XX (02:00)
[2018-03-14] MEDS: CLOPIDOGREL 75 MG TAB PO (08:11)
[2018-03-14] MEDS: LUBIPROSTONE 24 MCG CAP PO ×2 (08:11→20:44)
[2018-03-14] MEDS: POLYETHYLENE GLYCOL 17 GM PACKET PO (08:11)
[2018-03-14] MEDS: ISOSORBIDE MONONITRATE(SR)60 MG TAB PO (08:12)
[2018-03-14] MEDS: INSULIN ASPART [NOVOLOG] 3 ML PEN SC ×7 (08:15→20:48)
[2018-03-14] MEDS ORDERED: ONDANSETRON (ODT) 4 MG TAB ODT (13:00)
[2018-03-14] MEDS: ACETAMINOPHEN 325 MG TAB PO ×2 (14:29→20:44)
[2018-03-14] MEDS: SOD CHLORIDE 0.9% 500 ML IV ×2 (19:47→23:36)
[2018-03-14] MEDS: FAMOTIDINE 20 MG TAB PO (20:44)
[2018-03-14] MEDS: ATORVASTATIN 80 MG TAB PO (20:44)
[2018-03-14] MEDS: INSULIN GLARGINE [LANtus] 3 ML PEN SC (20:47)
[2018-03-15] MEDS: ACCU-CHEK XX (02:05)
[2018-03-15] MEDS ORDERED: SOD CHLORIDE 0.9% 500 ML IV (04:30)
[2018-03-15] MEDS: POLYETHYLENE GLYCOL 17 GM PACKET PO ×2 (05:25→08:41)
[2018-03-15] MEDS: SOD CHLORIDE 0.9% 500 ML IV (05:26)
[2018-03-15] MEDS: LUBIPROSTONE 24 MCG CAP PO ×2 (08:34→20:46)
[2018-03-15] MEDS: CLOPIDOGREL 75 MG TAB PO (08:34)
[2018-03-15] MEDS: ISOSORBIDE MONONITRATE(SR)60 MG TAB PO (08:35)
[2018-03-15] MEDS: NIFEdipine (XL) 60 MG TAB PO (08:35)
[2018-03-15] MEDS: INSULIN ASPART [NOVOLOG] 3 ML PEN SC ×7 (08:40→20:47)
[2018-03-15] MEDS: ATORVASTATIN 80 MG TAB PO (20:47)
[2018-03-15] MEDS: FAMOTIDINE 20 MG TAB PO (20:47)
[2018-03-16] MEDS: LORAZEPAM 0.5 MG TAB PO (01:32)
[2018-03-16] MEDS: ACCU-CHEK XX (02:00)
[2018-03-16 05:37] LABS: ALANINE AMINOTRANSFERASE 31 IU/L (13-69); ALBUMIN 3.3 g/dl (3.3-4.9); ALKALINE PHOSPHATASE 138 IU/L (42-121); ANION GAP 10 (8-16); ASPARTATE AMINO TRANSFERASE 31 IU/L (15-46); BLOOD UREA NITROGEN 32 mg/dl (7-20); CALCIUM 8.9 mg/dl (8.4-10.2); CARBON DIOXIDE 20 mmol/L (21-31); CHLORIDE 117 mmol/L (97-110); CREATININE 1.33 mg/dl (0.44-1.00); GLUCOSE 122 mg/dl (70-220); POTASSIUM 3.9 mmol/L (3.5-5.1); SODIUM 143 mmol/L (135-144); TOTAL PROTEIN 6.6 g/dl (6.1-8.1)
[2018-03-16] MEDS: INSULIN ASPART [NOVOLOG] 3 ML PEN SC ×6 (07:50→17:56)
[2018-03-16] MEDS: POLYETHYLENE GLYCOL 17 GM PACKET PO ×2 (09:00→09:29)
[2018-03-16] MEDS: LUBIPROSTONE 24 MCG CAP PO (09:28)
[2018-03-16] MEDS: CLOPIDOGREL 75 MG TAB PO (09:28)
[2018-03-16] MEDS: ISOSORBIDE MONONITRATE(SR)60 MG TAB PO (09:29)
[2018-03-16] MEDS: NIFEdipine (XL) 60 MG TAB PO (09:29)
[2018-03-16] MEDS ORDERED: INSULIN GLARGINE [LANtus] 3 ML PEN SC (20:00)
== END 2018-03-16 19:30 | disposition home or self-care (01) | DRG 637 ==
LOC: E/R 13:01 → MS1 16:12
DX: E11.65 Type 2 diabetes mellitus with hyperglycemia (principal); I21.4 Non-ST elevation (NSTEMI) myocardial infarction; E87.2 Acidosis; N17.9 Acute kidney failure, unspecified; I12.9 Hypertensive chronic kidney disease with stage 1 through stage 4 chronic kidney disease, or unspecified chronic kidney disease; N18.3 Chronic kidney disease, stage 3 (moderate); E11.22 Type 2 diabetes mellitus with diabetic chronic kidney disease; E78.5 Hyperlipidemia, unspecified; I25.10 Atherosclerotic heart disease of native coronary artery without angina pectoris; I25.2 Old myocardial infarction; Z79.84 Long term (current) use of oral hypoglycemic drugs; Z79.82 Long term (current) use of aspirin; Z95.5 Presence of coronary angioplasty implant and graft; Z99.2 Dependence on renal dialysis
CPT/HCPCS: 36415; 80048; 80053; 81001; 82962; 83036; 83605; 83735; 84100; 85025; 96360; 96361; 96372; 99285-25

== ENCOUNTER 2018-09-02 15:09 | Inpatient (IN) | payer OTHER ==
[2018-09-02 19:55] LABS: ADD MAN DIFF? NO; BASOPHIL # 0.1 10^3/ul (0.0-0.1); BASOPHILS % 0.7 % (0.0-2.0); EOSINOPHILS # 0.2 10^3/ul (0.0-0.5); EOSINOPHILS % 2.8 % (0.0-7.0); HEMATOCRIT 31.6 % (37.0-47.0); HEMOGLOBIN 9.7 g/dl (12.0-16.0); LYMPHOCYTES # 1.4 10^3/ul (0.8-2.9); LYMPHOCYTES % 16.7 % (15.0-51.0); MEAN CORPUSCULAR HGB CONC 30.7 g/dl (32.0-37.0); MEAN CORPUSCULAR VOLUME 91.1 fl (82.0-101.0); MEAN PLATELET VOLUME 9.7 fl (7.4-10.4); MONOCYTE # 0.4 10^3/ul (0.3-0.9); MONOCYTES % 4.8 % (0.0-11.0); NEUTROPHIL # 6.1 10^3/ul (1.6-7.5); NEUTROPHILS % 74.6 % (39.0-77.0); PLATELET COUNT 416 10^3/UL (140-415); RED BLOOD COUNT 3.47 10^6/ul (4.20-5.40); RED CELL DISTRIBUTION WIDTH 13.6 % (11.5-14.5)
[2018-09-02 19:55] LABS: WHITE BLOOD COUNT 8.1 10^3/ul (4.8-10.8)
[2018-09-02 20:03] LABS: ADD UMIC YES; UR ASCORBIC ACID NEGATIVE (NEGATIVE); UR BACTERIA FEW /HPF (NONE SEEN); UR BILIRUBIN (Dip) NEGATIVE (NEGATIVE); UR BLOOD (Dip) 1+ mg/dL (NEGATIVE); UR CLARITY CLOUDY (CLEAR); UR COLOR RED (YELLOW); UR GLUCOSE (Dip) 2+ mg/dL (NEGATIVE); UR GRANULAR CAST FEW /HPF (NONE SEEN); UR KETONES (Dip) NEGATIVE (NEGATIVE); UR LEUKOCYTE ESTERASE (Dip) NEGATIVE Leu/ul (NEGATIVE); UR NITRITE (Dip) NEGATIVE (NEGATIVE); UR RBC 1 /HPF (0-5); UR SPECIFIC GRAVITY (Dip) 1.017 (1.003-1.030); UR TOTAL PROTEIN (Dip) 3+ mg/dl (NEGATIVE); UR UROBILINOGEN (Dip) NEGATIVE (NEGATIVE); UR WBC 19 /HPF (0-5)
[2018-09-02 20:19] LABS: ALANINE AMINOTRANSFERASE 23 IU/L (13-69); ALBUMIN 3.7 g/dl (3.3-4.9); ALBUMIN/GLOBULIN RATIO 0.97; ALKALINE PHOSPHATASE 187 IU/L (42-121); ANION GAP 8 (5-13); ASPARTATE AMINO TRANSFERASE 35 IU/L (15-46); BILIRUBIN,INDIRECT 0.1 mg/dl (0-1.1); BILIRUBIN,TOTAL 0.1 mg/dl (0.2-1.3); BLOOD UREA NITROGEN 36 mg/dl (7-20); CALCIUM 9.1 mg/dl (8.4-10.2); CARBON DIOXIDE 20 mmol/L (21-31); CHLORIDE 115 mmol/L (97-110); Estimated GFR 36 mL/min (>60); GLUCOSE 209 mg/dl (70-220); LIPASE 79 U/L (23-300); POTASSIUM 4.3 mmol/L (3.5-5.1); SODIUM 143 mmol/L (135-144); TOTAL PROTEIN 7.5 g/dl (6.1-8.1)
[2018-09-02] MEDS: OXYCODONE/ACETAMINOPHEN (5/325) TAB PO (20:24)
[2018-09-02] MEDS: CEFTRIAXONE 1 GM/50 ML (PMX) 50 ML IVPB (20:25)
[2018-09-02] MEDS: KETOROLAC 15 MG INJ IV (20:25)
[2018-09-02] MEDS: SOD CHLORIDE 0.9% 500 ML IV (20:26)
[2018-09-02] MEDS ORDERED: DEXTROSE 50% 50 ML SYRINGE IV ×4 (23:45)
[2018-09-02] MEDS ORDERED: GLUCAGON 1 MG INJ IM ×2 (23:45)
[2018-09-02] MEDS ORDERED: GLUCOSE GEL 15 GRAM TUBE BUCCAL ×2 (23:45)
[2018-09-02] MEDS ORDERED: GLUCOSE GEL 15 GRAM TUBE PO ×4 (23:45)
[2018-09-03] MEDS ORDERED: LORAZEPAM 0.5 MG TAB PO
[2018-09-03] MEDS ORDERED: NITROGLYCERIN (SL) 0.4 MG TAB SL
[2018-09-03] MEDS: ACCU-CHEK XX (02:00)
[2018-09-03] MEDS: HYDROCODONE/APAP (5/325) TAB PO ×2 (03:17→17:08)
[2018-09-03] MEDS: LEVOFLOXACIN 500MG/D5W (PMX) 100 ML IVPB (06:01)
[2018-09-03] MEDS ORDERED: ISOSORBIDE MONONITRATE(SR)60 MG TAB PO (07:45)
[2018-09-03] MEDS ORDERED: NIFEdipine (XL) 60 MG TAB PO (07:46)
[2018-09-03] MEDS: ISOSORBIDE MONONITRATE(SR)60 MG TAB PO ×2 (07:50→20:27)
[2018-09-03] MEDS: NIFEdipine (XL) 60 MG TAB PO (07:51)
[2018-09-03] MEDS: INSULIN ASPART [NOVOLOG] 3 ML PEN SC ×4 (08:00→20:37)
[2018-09-03] MEDS: FAMOTIDINE 20 MG TAB PO (08:42)
[2018-09-03] MEDS: CLOPIDOGREL 75 MG TAB PO (08:42)
[2018-09-03] MEDS: FENOFIBRATE 48 MG TAB PO (08:42)
[2018-09-03] MEDS: ASPIRIN (EC) 81 MG TAB PO (08:42)
[2018-09-03] MEDS ORDERED: NON-FORMULARY/PATIENT OWN MED (Fenofibrate, Micronized (Fenofibrate) 54 MG) PO (09:00)
[2018-09-03] MEDS: hydrALAzine 20 MG INJ IV (11:25)
[2018-09-03] MEDS: SOD CHLORIDE 0.9% 1,000 ML IV (13:17)
[2018-09-03 19:06] LABS: SODIUM,URINE RANDOM 91 mmol/L (30-90)
[2018-09-03 19:06] LABS: CREATININE,URINE RANDOM 64.84 mg/dl (20-320)
[2018-09-03] MEDS: GABAPENTIN 300 MG CAP PO (20:28)
[2018-09-03] MEDS: ATORVASTATIN 40 MG TAB PO (20:28)
[2018-09-03] MEDS: INSULIN GLARGINE [LANtus] 3 ML PEN SC (20:37)
[2018-09-04] MEDS: ACCU-CHEK XX (02:24)
[2018-09-04] MEDS: LEVOFLOXACIN 500MG/D5W (PMX) 100 ML IVPB (05:02)
[2018-09-04 06:05] LABS: ADD MAN DIFF? NO
[2018-09-04 06:08] LABS: WHITE BLOOD COUNT 6.4 10^3/ul (4.8-10.8)
[2018-09-04 06:08] LABS: BASOPHILS % 0.5 % (0.0-2.0); EOSINOPHILS # 0.3 10^3/ul (0.0-0.5); HEMATOCRIT 26.1 % (37.0-47.0); LYMPHOCYTES # 1.5 10^3/ul (0.8-2.9); LYMPHOCYTES % 23.5 % (15.0-51.0); MEAN CORPUSCULAR HEMOGLOBIN 27.9 pg (29.0-33.0); MEAN CORPUSCULAR HGB CONC 30.7 g/dl (32.0-37.0); MEAN CORPUSCULAR VOLUME 90.9 fl (82.0-101.0); MONOCYTE # 0.4 10^3/ul (0.3-0.9); MONOCYTES % 6.9 % (0.0-11.0); NEUTROPHIL # 4.1 10^3/ul (1.6-7.5); NEUTROPHILS % 63.8 % (39.0-77.0); PLATELET COUNT 342 10^3/UL (140-415); RED BLOOD COUNT 2.87 10^6/ul (4.20-5.40); RED CELL DISTRIBUTION WIDTH 13.7 % (11.5-14.5)
[2018-09-04 06:35] LABS: ANION GAP 9 (5-13); BLOOD UREA NITROGEN 28 mg/dl (7-20); CALCIUM 8.4 mg/dl (8.4-10.2); CARBON DIOXIDE 20 mmol/L (21-31); CHLORIDE 114 mmol/L (97-110); CREATININE 1.48 mg/dl (0.44-1.00); Estimated GFR 36 mL/min (>60); GLUCOSE 147 mg/dl (70-220); POTASSIUM 4.3 mmol/L (3.5-5.1); SODIUM 143 mmol/L (135-144)
[2018-09-04 06:37] LABS: HEMOGLOBIN A1C 8.8 % (0-5.9)
[2018-09-04] MEDS: INSULIN ASPART [NOVOLOG] 3 ML PEN SC ×4 (08:05→22:01)
[2018-09-04] MEDS: CLOPIDOGREL 75 MG TAB PO (08:38)
[2018-09-04] MEDS: ISOSORBIDE MONONITRATE(SR)60 MG TAB PO ×2 (08:39→21:56)
[2018-09-04] MEDS: FAMOTIDINE 20 MG TAB PO (08:39)
[2018-09-04] MEDS: FENOFIBRATE 48 MG TAB PO (08:39)
[2018-09-04] MEDS: NIFEdipine (XL) 60 MG TAB PO (08:39)
[2018-09-04] MEDS: ASPIRIN (EC) 81 MG TAB PO (08:40)
[2018-09-04] MEDS: hydrALAzine 20 MG INJ IV (12:04)
[2018-09-04] MEDS: POLYSACCHARIDE IRON COMPLEX CAP PO ×2 (15:33→21:57)
[2018-09-04] MEDS: ATORVASTATIN 40 MG TAB PO (21:57)
[2018-09-04] MEDS: GABAPENTIN 300 MG CAP PO (21:57)
[2018-09-04] MEDS: INSULIN GLARGINE [LANtus] 3 ML PEN SC (21:59)
[2018-09-05] MEDS: ACCU-CHEK XX (02:38)
[2018-09-05 05:22] LABS: ADD MAN DIFF? NO
[2018-09-05 05:30] LABS: BASOPHILS % 0.8 % (0.0-2.0); EOSINOPHILS # 0.3 10^3/ul (0.0-0.5); EOSINOPHILS % 5.1 % (0.0-7.0); HEMATOCRIT 24.8 % (37.0-47.0); HEMOGLOBIN 7.9 g/dl (12.0-16.0); LYMPHOCYTES # 1.4 10^3/ul (0.8-2.9); LYMPHOCYTES % 27.7 % (15.0-51.0); MEAN CORPUSCULAR HEMOGLOBIN 28.1 pg (29.0-33.0); MEAN CORPUSCULAR HGB CONC 31.9 g/dl (32.0-37.0); MEAN CORPUSCULAR VOLUME 88.3 fl (82.0-101.0); MEAN PLATELET VOLUME 10.3 fl (7.4-10.4); MONOCYTE # 0.5 10^3/ul (0.3-0.9); NEUTROPHIL # 2.9 10^3/ul (1.6-7.5); PLATELET COUNT 326 10^3/UL (140-415); RED BLOOD COUNT 2.81 10^6/ul (4.20-5.40); RED CELL DISTRIBUTION WIDTH 13.8 % (11.5-14.5)
[2018-09-05 05:30] LABS: WHITE BLOOD COUNT 5.1 10^3/ul (4.8-10.8)
[2018-09-05] MEDS: LEVOFLOXACIN 500MG/D5W (PMX) 100 ML IVPB (05:37)
[2018-09-05 05:58] LABS: ANION GAP 5 (5-13); BLOOD UREA NITROGEN 36 mg/dl (7-20); CALCIUM 8.5 mg/dl (8.4-10.2); CARBON DIOXIDE 20 mmol/L (21-31); CHLORIDE 118 mmol/L (97-110); CREATININE 1.61 mg/dl (0.44-1.00); Estimated GFR 33 mL/min (>60); GLUCOSE 115 mg/dl (70-220); POTASSIUM 3.9 mmol/L (3.5-5.1); SODIUM 143 mmol/L (135-144)
[2018-09-05 06:16] LABS: IRON 67 ug/dl (35-150)
[2018-09-05 06:26] LABS: % IRON SATURATION 27 % SAT (22-52); TOTAL IRON BINDING CAPACITY 251 ug/dl (241-421)
[2018-09-05] MEDS: HYDROCODONE/APAP (5/325) TAB PO ×2 (06:56→10:26)
[2018-09-05] MEDS: INSULIN ASPART [NOVOLOG] 3 ML PEN SC ×3 (08:00→17:22)
[2018-09-05 08:34] LABS: URIC ACID 5.1 mg/dl (3.1-7.9)
[2018-09-05] MEDS: CLOPIDOGREL 75 MG TAB PO (08:59)
[2018-09-05] MEDS: FAMOTIDINE 20 MG TAB PO (08:59)
[2018-09-05] MEDS: ISOSORBIDE MONONITRATE(SR)60 MG TAB PO (08:59)
[2018-09-05] MEDS: FENOFIBRATE 48 MG TAB PO (09:00)
[2018-09-05] MEDS: POLYSACCHARIDE IRON COMPLEX CAP PO (09:00)
[2018-09-05] MEDS: NIFEdipine (XL) 90 MG TAB PO (09:00)
[2018-09-05] MEDS: ASPIRIN (EC) 81 MG TAB PO (09:00)
== END 2018-09-05 18:32 | disposition home or self-care (01) | DRG 684 ==
LOC: E/R 15:09 → PP2 20:17
PROVIDERS: Internal Medicine Nephrology
DX: N17.9 Acute kidney failure, unspecified (principal); E11.22 Type 2 diabetes mellitus with diabetic chronic kidney disease; I12.9 Hypertensive chronic kidney disease with stage 1 through stage 4 chronic kidney disease, or unspecified chronic kidney disease; E78.5 Hyperlipidemia, unspecified; I25.2 Old myocardial infarction; I25.10 Atherosclerotic heart disease of native coronary artery without angina pectoris; E86.0 Dehydration; N18.3 Chronic kidney disease, stage 3 (moderate); D64.9 Anemia, unspecified; E66.3 Overweight; E11.65 Type 2 diabetes mellitus with hyperglycemia; F41.9 Anxiety disorder, unspecified; Z95.5 Presence of coronary angioplasty implant and graft
CPT/HCPCS: 36415; 71045; 76775; 80048; 80053; 81001; 82962; 83036; 83540; 83690; 84155; 84300; 84560; 85025; 87086; 99285-25